=== PATIENT | female | born 1935 | race Caucasian/White ===

== ENCOUNTER 2017-06-28 16:55 | Emergency (ER) | payer MEDICARE, OTHER ==
[2017-06-28 17:52] VITALS: BP 163/77
[2017-06-28] MEDS ORDERED: Cefdinir 250mg/5 ml* 100 ml ORAL.SUSP PO ONE (19:31)
--- NOTE | 2017-06-28 19:38 | UC ---
Throat Pain/Nasal Chip HPI - History of Current Complaint Chief Complaint: UCRespiratory Stated Complaint: HEAD CONGESTION Time Seen by Provider: 06/28/17 18:51 Hx Obtained From: Patient Onset/Duration: Gradual Onset - started 5-6 days ago with nasal congestion. has gotten much worse over past 2 days, cannot sleep and feels "washed out" today Associated Signs & Symptoms: Positive: Sinus Discomfort, Nasal Discharge - yellow - Allergies/Home Medications Allergies/Adverse Reactions: Allergies Allergy/AdvReac Type Severity Reaction Status Date / Time Amoxicillin AdvReac Diarrhea Verified 02/09/16 17:52 Home Medications: Home Medications Betamethasone Dipropionate (To [Betamethasone Dipropionat] 0.05 % EX 06/28/17 [ History] Mupirocin 2% CREAM* [Bactroban 2% CREAM*] 1 applic TOPICAL TID 06/28/17 [ History Confirmed 06/28/17] Triamcinolone 0.1% CREAM (NF) [Kenalog 0.1% Cream (NF)] 1 applic .SEE ORDER [History] PMH/Surg Hx/FS Hx/Imm Hx Previously Healthy: Yes Endocrine History: Hypothyroidism Cardiovascular History: Cardiac Disease, Hypertension GI/ History: Other - adhesions Other GI/ History: adhesion - Surgical History Surgical History: Yes Surgery Procedure, Year, and Place: bowel resection - adhesions - Family History Known Family History: Positive: None - Social History Occupation: Retired Lives: With Family Alcohol Use: None Substance Use Type: None Smoking Status (MU): Never Smoked Tobacco Review of Systems Constitutional: Negative Skin: Rash - sees derm Eyes: Drainage - clear, Eye Redness ENT: Sinus Congestion, Sinus Pain/Tenderness Respiratory: Negative Cardiovascular: Negative Gastrointestinal: Negative Neurological: Negative Psychological: Negative All Other Systems Reviewed And Are Negative: Yes Physical Exam Triage Information Reviewed: Yes Appearance: Well-Appearing, No Pain Distress, Well-Nourished Vital Signs: Initial Vital Signs Temp 98.6 F 06/28/17 17:48 Pulse 85 06/28/17 17:48 Resp 18 06/28/17 17:48 BP 163/77 06/28/17 17:48 Pulse Ox 98 06/28/17 17:48 Vital Signs Reviewed: Yes Eyes: Positive: Conjunctiva Inflamed - puffiness around eyes ENT: Positive: Pharyngeal erythema, Nasal congestion, TMs normal Neck exam: Normal Respiratory Exam: Normal Respiratory: Positive: Lungs clear Cardiovascular Exam: Normal Neurological Exam: Normal Neurological: Positive: Alert Psychological Exam: Normal Skin: Positive: rashes - already treated by derm Throat Pain/Nasal Course/Dx - Differential Dx/Diagnosis Differential Diagnosis/HQI/PQRI: Influenza, Pharyngitis, Sinusitis, URI Provider Diagnoses: sinusitis Discharge - Discharge Plan Condition: Good Disposition: HOME Prescriptions: Cefdinir [Cefdinir 300 MG CAP] 300 mg PO BID #10 cap Referrals: Balwinder Wilson MD [Primary Care Provider] - 3 Days (for recheck) Additional Instructions: Take medication as directed drink plenty of fluids
== END 2017-06-28 20:07 | disposition home or self-care (01) ==
LOC: UCEAST 16:55
DX: J32.9 Chronic sinusitis, unspecified (principal); E03.9 Hypothyroidism, unspecified; I10 Essential (primary) hypertension; I51.9 Heart disease, unspecified; Z88.0 Allergy status to penicillin
CPT/HCPCS: 99213; G0463

== ENCOUNTER 2017-07-03 14:03 | Inpatient (IN) | payer MEDICARE, OTHER ==
[2017-07-03] MEDS ORDERED: Albuterol/Ipratropium NEB.SOL* Albuterol 2.5 MG/Ipratropium 0.5 MG 3 ML INH ONE (16:16)
[2017-07-03] MEDS ORDERED: methylPREDNISolone 125 MG* 2 ML VIAL IV ONE (16:16)
--- NOTE | 2017-07-03 16:44 | RAD ---
INDICATION: Shortness of breath. COMPARISON: Comparison is made with a prior study from May 02, 2012. TECHNIQUE: Dual-energy PA and lateral views of the chest were obtained. FINDINGS: The heart is within normal limits in size. Mediastinal and hilar contours appear within normal limits. The lungs are hyperinflated and clear. No pleural effusion is seen. IMPRESSION: FINDINGS SUGGESTIVE OF COPD, NO EVIDENCE FOR ACUTE FINDING.
[2017-07-03 17:23] LABS: Hematocrit 40 % (35-47); Hemoglobin 13.4 g/dl (12.0-16.0); Mean Corpuscular HGB Conc 33 g/dl (31-36); Mean Corpuscular Hemoglobin 31 pg (27-31); Mean Corpuscular Volume 93 fL (80-97); Mean Platelet Volume 10 um3 (7.4-10.4); Red Blood Count 4.29 10^6/ul (4.0-5.4); Red Cell Distribution Width 14 % (10.5-15); White Blood Count 9.1 10^3/ul (3.5-10.8)
[2017-07-03 17:39] LABS: Albumin 3.4 g/dL (3.2-5.2); BUN/Creatinine Ratio 21.3 (8-20); Calcium 8.9 mg/dL (8.6-10.3); EGFR African American 37.2 (>60); EGFR Non-African American 28.9 (>60); Globulin 3.1 g/dL (2-4); Potassium 4.3 mmol/L (3.5-5.0); Total Bilirubin 0.6 mg/dL (0.2-1.0); Total Protein 6.5 g/dL (6.4-8.9)
[2017-07-03 17:43] LABS: Troponin I 0.06 ng/mL (<0.04)
[2017-07-03] MEDS ORDERED: Aspirin Low Dose CHEW TAB* 81 MG PO ONE (18:08)
--- NOTE | 2017-07-03 18:11 | ED ---
Niurka Keene SooYoung, scribed for Yaw Baldwin MD on 07/03/17 at 1611 . Respiratory - HPI Summary HPI Summary: An 82 y/o F presents to ED with respiratory complaint ongoing for past 8-9 days ago. Pt was seen at [facility] [place] on 06/28 and is taking Cefdinir. Sx include sinus congestion, post-nasal drip, fatigue, mildly nonproductive cough, rhinorrhea, SOB. She notes having diarrhea at baseline due to her medications. Denies fever , chills. PCP is Dr. Wilson. - History of Current Complaint Chief Complaint: EDUpperRespComplaint Stated Complaint: SOB/CONGESTED/COUGH Time Seen by Provider: 07/03/17 16:05 Hx Obtained From: Patient Onset/Duration: Gradual Onset, Lasting Weeks, Still Present Initial Severity: Mild Current Severity: Mild Pain Intensity: 0 Character: Wheezing, Cough (Productive) - mildly Associated Signs and Symptoms: SOB, Wheezing, Chest Pain with Cough, Nasal Congestion, Sinus Discomfort - Allergy/Home Medications Allergies/Adverse Reactions: Allergies Allergy/AdvReac Type Severity Reaction Status Date / Time Amoxicillin AdvReac Diarrhea Verified 02/09/16 17:52 Home Medications: Home Medications Betamethasone Dipropionate (To [Betamethasone Dipropionat] 0.05 % TOPICAL BID [History Confirmed 07/03/17] Cefdinir cap (NF) [Cefdinir 300 MG cap (NF)] 300 mg PO BID 07/03/17 [History Confirmed 07/03/17] Econazole 1% CREAM (NF) [Econazole 1 % CREAM (NF)] 1 applic TOPICAL BID [History Confirmed 07/03/17] Hydrocortisone 2.5% CREAM(NF) 1 applic TOPICAL BID 07/03/17 [History Confirmed 07/03/17] [place]-3 Fatty Acids (Nf) [Fish Oil (NF)] 1,000 mg PO TID 07/03/17 [History Confirmed 07/03/17] PMH/Surg Hx/FS Hx/Imm Hx Previously Healthy: No Endocrine/Hematology History: Reports: Hx Thyroid Disease Cardiovascular History: Reports: Hx Hypertension GI History: Reports: Hx Diverticulosis - Cancer History Hx Chemotherapy: No Hx Radiation Therapy: No - Surgical History Surgery Procedure, Year, and Place: bowel resection - adhesions Infectious Disease History: Yes Infectious Disease History: Reports: Hx Shingles Denies: History Other Infectious Disease, Traveled Outside the [place] in Last 30 Days - Family History Known Family History: Positive: None, Other - neg: Breast CA - Social History Occupation: Retired Lives: With Family Alcohol Use: None Hx Substance Use: No Substance Use Type: Reports: None Hx Tobacco Use: No Smoking Status (MU): Never Smoked Tobacco Review of Systems Positive: Fatigue. Negative: Fever, Chills Positive: Nasal Discharge, Other - sinus congestion, post-nasal drip, rhinorrhea Positive: Shortness Of Breath, Cough All Other Systems Reviewed And Are Negative: Yes Physical Exam Triage Information Reviewed: Yes Vital Signs On Initial Exam: Initial Vitals Temp Pulse Resp BP Pulse Ox 97.6 F 78 20 145/73 96 07/03/17 14:17 07/03/17 14:17 07/03/17 14:17 07/03/17 14:17 07/03/17 14:17 Vital Signs Reviewed: Yes Appearance: Positive: Well-Appearing, No Pain Distress Skin: Positive: Warm, Skin Color Reflects Adequate Perfusion Head/Face: Positive: Normal Head/Face Inspection Eyes: Positive: EOMI ENT: Positive: Normal ENT inspection, Nasal congestion Respiratory/Lung Sounds: Positive: Wheezes - bilateral Cardiovascular: Positive: RRR. Negative: Murmur Abdomen Description: Positive: Nontender Musculoskeletal: Positive: Strength/ROM Intact Neurological: Positive: Sensory/Motor Intact, Alert, Oriented to Person Place, Time, CN Intact II-III Psychiatric: Positive: Normal - Donato Coma Scale Best Eye Response: 4 - Spontaneous Best Motor Response: 6 - Obeys Commands Best Verbal Response: 5 - Oriented Diagnostics - Vital Signs Vital Signs Temp Pulse Resp BP Pulse Ox 07/03/17 14:17 97.6 F 78 20 145/73 96 - Laboratory Result Diagrams: 07/03/17 17:08 07/03/17 17:08 Lab Statement: Any lab studies that have been ordered have been reviewed, and results considered in the medical decision making process. - Radiology CXR Xray Interpretation: No Acute Changes - IMPRESSION: Findings suggestive of COPD. No evidence for acute findings. ED physician has reviewed this radiology report and agrees. Radiology Interpretation Completed By: Radiologist - EKG 1739 Cardiac Rate: NL - 83bpm EKG Rhythm: Sinus Rhythm ST Segment: Normal - no STEMI Disposition - Course Course Of Treatment: An 82 y/o F presents to ED with respiratory complaint ongoing for past 8-9 days ago. Pt was seen at [facility] [place] on 06/28 and is taking Cefdinir. Sx include sinus congestion, post-nasal drip, fatigue, mildly nonproductive cough, rhinorrhea, SOB. She notes having diarrhea at baseline due to her medications. Denies fever, chills. PCP is Dr. Wilson. Bloodwork is without significant abnormality except BNP is 315, DDimer is 389, and trop is 0.06. EKG is NSR, no STEMI. CXR shows "Findings suggestive of COPD. No evidence for acute findings." - Diagnoses Provider Diagnoses: Shortness of breath, Weakness, Dehydration - Physician Notifications Discussed Care Of Patient With: Michele Reyes - hospitalist Time Discussed With Above Provider: 18:01 Instructed by Provider To: MD Will See In ED Discharge - Discharge Plan Condition: Good Disposition: ADMITTED TO [facility] Referrals: Balwinder Wilson MD [Primary Care Provider] - The documentation as recorded by the Niurka valenzuela SooYoung accurately reflects the service I personally performed and the decisions made by me, Yaw Baldwin MD.
[2017-07-03] MEDS ORDERED: NS 0.9% 1000 ML* 1,000 ML IV SCH ×2 (18:15→20:45)
[2017-07-03] MEDS ORDERED: Diphenoxylat/Atrop 2.5-0.025M* 1 TAB PO PRN (20:29)
[2017-07-03] MEDS ORDERED: Albuterol 2.5 MG/3 ML NEB.SOL* (0.083%) INH PRN (20:31)
[2017-07-03] MEDS ORDERED: Acetaminophen TAB* 325 MG PO PRN (20:31)
[2017-07-03] MEDS ORDERED: CMCS: Melatonin (NF) 3 MG TAB PO PRN (20:32)
[2017-07-03] MEDS ORDERED: Ondansetron INJ* 2 MG/ML VIAL IV PRN (20:33)
[2017-07-03] MEDS ORDERED: Spiriva Inhaler DEVICE* 1 EACH DEVICE INH ONE (21:00)
[2017-07-03] MEDS ORDERED: Enoxaparin(*) 80 MG/0.8 ML SYR SUBCUT ONE (21:00)
[2017-07-03] MEDS: Mometasone/Formoter 200/5 MDI INH SCH (21:00)
[2017-07-03] MEDS ORDERED: Mupirocin 2% CREAM* 15 GM TOPICAL SCH (21:00)
[2017-07-03] MEDS: Azithromycin IV(*) 500 MG in NS 0.9% 250 ML* 250 ML IVPB SCH (23:16)
[2017-07-03] MEDS: guaiFENesin ER TAB 600 MG PO SCH (23:19)
[2017-07-03] MEDS: ECONAZOLE 1% TOPICAL SCH (23:20)
[2017-07-03] MEDS: Mupirocin 2% OINT* TUBE TOPICAL SCH (23:21)
[2017-07-04] MEDS: Albuterol 2.5 MG/3 ML NEB.SOL* (0.083%) INH SCH ×4 (01:26→20:08)
--- NOTE | 2017-07-04 01:27 | HP ---
H&P (Free Text) History and Physical: PCP: Whit Wilson MD Date/Time: 07/03/20171999 CC: malaise HPI: Mrs Villatoro is an 82YO female presenting with complaint of ~10 days of head congestion, cough, runny eyes/nose, SOB with activity, fatigue, & decreased exercise tolerance gradually worsening. She reports palpitations last night , but denies chest pain, N/V, or F/C. She was seen at an urgent care 06/28 and was prescribed cefdinir which she reports taking, but has not helped. ED evaluation has identified stable vitals, labs notable for d-dimer of 389, stg 4 CKD (? chronic vs acute on chronic), elevated troponin of 0.06, BNP 315 ( the highest on record), CXR reading that of COPD, & ECG benign. Of note, upon my initial entering of the room her daughter (? -in-law) stated that Mrs Villatoro's R hand was cold and index finger was numb. The hands were immediately examined with both being cool to touch, the R a bit moreso than the left. Radial pulses were 2+ B and equally timed. Capillary refill was <2s B. Neither was painful. Mrs Villatroo was informed this was nothing to worry about currently. The remainder of the H&P was performed and at the end without further concern expressed by family/patient the hands were re-examined and the patient was again reassured. As I left the exam room, her daughter (? -in-law) followed me and registered a complaint that she did not feel her mother's concern for her cold R hand was properly addressed. I re-iterated my initial and follow up exam both ending with reassurance to which she then complained of my bedside manner. PMedHx IBS w/ chronic diarrhea HTN hypothyroidism HLD DM2, diet controlled psoriasis spinal stenosis [facility] Ambulatory Orders Aspirin [Aspirin Childrens 81 MG] 81 mg PO DAILY 02/09/16 Atenolol TAB* [Tenormin TAB* 50 MG] 50 mg PO DAILY 02/09/16 Atorvastatin* [Lipitor 10 MG*] 10 mg PO DAILY 02/09/16 Coenzyme Q10 (Ubidecarenone) [Co Q-10] 120 mg PO DAILY 02/09/16 Diphenoxylat/Atrop 2.5-0.025M* [Lomotil TAB*] 1 tab PO QID PRN 02/09/16 Hydrochlorothiazide TAB* [Hydrodiuril TAB*] 12.5 mg PO DAILY 02/09/16 Levothyroxine TAB* [Synthroid 88 MCG TAB*] 88 mcg PO 0800 02/09/16 Multiple Vitamins W/ Minerals [Ocuvite Eye Health Formul] 1 cap PO DAILY Mupirocin 2% CREAM* [Bactroban 2% CREAM*] 1 applic TOPICAL TID 06/28/17 Triamcinolone 0.1% CREAM (NF) [Kenalog 0.1% Cream (NF)] 1 applic TOPICAL BID Betamethasone Dipropionate (To [Betamethasone Dipropionat] 0.05 % TOPICAL BID Cefdinir cap (NF) [Cefdinir 300 MG cap (NF)] 300 mg PO BID 07/03/17 Econazole 1% CREAM (NF) [Econazole 1 % CREAM (NF)] 1 applic TOPICAL BID Hydrocortisone 2.5% CREAM(NF) 1 applic TOPICAL BID 07/03/17 [place]-3 Fatty Acids (Nf) [Fish Oil (NF)] 1,000 mg PO TID 07/03/17 Allergies Amoxicillin Adverse Reaction (Verified 02/09/16 17:52) Diarrhea PSurgHx thyroidectomy for benign tumor hysterectomy small bowel & colon resection 2nd adhesions SocHx: quit smoking in 1985, no alcohol or recreational drugs; , lives alone; worked in insurance; full code status FamHx: positive for HTN, HLD, CAD, & DM2 ROS: as above, otherwise reviewed and all were negative vitals: Vital Signs Temp 36.7 C 07/03/17 20:33 Pulse 86 07/03/17 20:33 Resp 20 07/03/17 20:33 BP 144/76 07/03/17 20:33 Pulse Ox 96 07/04/17 00:00 Intake & Output 07/03/17 07/03/17 07/04/17 11:59 23:59 11:59 Intake Total 0 Output Total 0 Balance 0 Weight 77.156 kg Intake: Oral 0 Output: Urine 0 Other: # Bowel Movements 0 Constitutional: NAD, normally developed, overweight elderly white female HEENM: atraumatic; sclera/conjunctiva: non-icteric/mildly injected; hearing: clinically intact; oropharynx: clear, mucosa moist Neck: soft tissue: non-tender; thyroid: normal Pulmonary: harsh mid- to end-expiratory rhonchi R, diffuse mild rhonichi elsewhere, fair aeration, no accessory muscle use CV: RR/RR, normal S1S2, no carotid bruit, no jugular venous distention, 1+ B DP/ PT, no edema Abdominal: soft, non-distended, non-tender, no rebound/guarding/rigidity, normoactive bowel sounds, no hepatosplenomegaly or masses, no costovertebral angle tenderness Musculoskeletal: general: grossly intact, no palpable tenderness, negative Maria Esther 's B Integumental: normal appearance and texture of exposed skin Psychiatric orientation: AA&O to PPS affect: calm mood: cooperative eye contact: good content: reliable responses: timely insight: fair to good Testing: Lab Results 07/03/17 07/03/17 07/03/17 Range/Units 17:08 17:08 17:08 WBC 9.1 (3.5-10.8) 10^3/ul RBC 4.29 (4.0-5.4) 10^6/ul Hgb 13.4 (12.0-16.0) g/dl Hct 40 (35-47) % MCV 93 (80-97) fL MCH 31 (27-31) pg MCHC 33 (31-36) g/dl RDW 14 (10.5-15) % Plt Count 178 (150-450) 10^3/ul MPV 10 (7.4-10.4) um3 Neut % (Auto) 80.5 (38-83) % Lymph % (Auto) 13.0 L (25-47) % Carbon % (Auto) 5.3 (1-9) % Eos % (Auto) 0.6 (0-6) % Baso % (Auto) 0.6 (0-2) % Absolute Neuts (auto) 7.3 (1.5-7.7) 10^3/ul Absolute Lymphs (auto) 1.2 (1.0-4.8) 10^3/ul Absolute Monos (auto) 0.5 (0-0.8) 10^3/ul Absolute Eos (auto) 0.1 (0-0.6) 10^3/ul Absolute Basos (auto) 0.1 (0-0.2) 10^3/ul Absolute Nucleated RBC 0 10^3/ul Nucleated RBC % 0 D-Dimer, Quantitative (Less Than 230) ng/mL Sodium 136 (133-145) mmol/L Potassium 4.3 (3.5-5.0) mmol/L Chloride 101 (101-111) mmol/L Carbon Dioxide 26 (22-32) mmol/L Anion Gap 9 (2-11) mmol/L BUN 36 H (6-24) mg/dL Creatinine 1.69 H (0.51-0.95) mg/dL Est GFR ( Amer) 37.2 (>60) Est GFR (Non-Af Amer) 28.9 (>60) BUN/Creatinine Ratio 21.3 H (8-20) Glucose 107 H (70-100) mg/dL Lactic Acid (0.5-2.0) mmol/L Calcium 8.9 (8.6-10.3) mg/dL Total Bilirubin 0.60 (0.2-1.0) mg/dL AST 14 (13-39) U/L ALT 8 (7-52) U/L Alkaline Phosphatase 59 (34-104) U/L Troponin I 0.06 H* (<0.04) ng/mL B-Natriuretic Peptide 315 H ( - 100) pg/mL Total Protein 6.5 (6.4-8.9) g/dL Albumin 3.4 (3.2-5.2) g/dL Globulin 3.1 (2-4) g/dL Albumin/Globulin Ratio 1.1 (1-3) Influenza A (Rapid) (Negative) Influenza B (Rapid) (Negative) 07/03/17 07/03/17 07/03/17 Range/Units 17:08 17:08 18:03 WBC (3.5-10.8) 10^3/ul RBC (4.0-5.4) 10^6/ul Hgb (12.0-16.0) g/dl Hct (35-47) % MCV (80-97) fL MCH (27-31) pg MCHC (31-36) g/dl RDW (10.5-15) % Plt Count (150-450) 10^3/ul MPV (7.4-10.4) um3 Neut % (Auto) (38-83) % Lymph % (Auto) (25-47) % Carbon % (Auto) (1-9) % Eos % (Auto) (0-6) % Baso % (Auto) (0-2) % Absolute Neuts (auto) (1.5-7.7) 10^3/ul Absolute Lymphs (auto) (1.0-4.8) 10^3/ul Absolute Monos (auto) (0-0.8) 10^3/ul Absolute Eos (auto) (0-0.6) 10^3/ul Absolute Basos (auto) (0-0.2) 10^3/ul Absolute Nucleated RBC 10^3/ul Nucleated RBC % D-Dimer, Quantitative 389 H (Less Than 230) ng/mL Sodium (133-145) mmol/L Potassium (3.5-5.0) mmol/L Chloride (101-111) mmol/L Carbon Dioxide (22-32) mmol/L Anion Gap (2-11) mmol/L BUN (6-24) mg/dL Creatinine (0.51-0.95) mg/dL Est GFR ( Amer) (>60) Est GFR (Non-Af Amer) (>60) BUN/Creatinine Ratio (8-20) Glucose (70-100) mg/dL Lactic Acid 0.9 (0.5-2.0) mmol/L Calcium (8.6-10.3) mg/dL Total Bilirubin (0.2-1.0) mg/dL AST (13-39) U/L ALT (7-52) U/L Alkaline Phosphatase (34-104) U/L Troponin I (<0.04) ng/mL B-Natriuretic Peptide ( - 100) pg/mL Total Protein (6.4-8.9) g/dL Albumin (3.2-5.2) g/dL Globulin (2-4) g/dL Albumin/Globulin Ratio (1-3) Influenza A (Rapid) Negative (Negative) Influenza B (Rapid) Negative (Negative) 07/03/17 Range/Units 22:54 WBC (3.5-10.8) 10^3/ul RBC (4.0-5.4) 10^6/ul Hgb (12.0-16.0) g/dl Hct (35-47) % MCV (80-97) fL MCH (27-31) pg MCHC (31-36) g/dl RDW (10.5-15) % Plt Count (150-450) 10^3/ul MPV (7.4-10.4) um3 Neut % (Auto) (38-83) % Lymph % (Auto) (25-47) % Carbon % (Auto) (1-9) % Eos % (Auto) (0-6) % Baso % (Auto) (0-2) % Absolute Neuts (auto) (1.5-7.7) 10^3/ul Absolute Lymphs (auto) (1.0-4.8) 10^3/ul Absolute Monos (auto) (0-0.8) 10^3/ul Absolute Eos (auto) (0-0.6) 10^3/ul Absolute Basos (auto) (0-0.2) 10^3/ul Absolute Nucleated RBC 10^3/ul Nucleated RBC % D-Dimer, Quantitative (Less Than 230) ng/mL Sodium (133-145) mmol/L Potassium (3.5-5.0) mmol/L Chloride (101-111) mmol/L Carbon Dioxide (22-32) mmol/L Anion Gap (2-11) mmol/L BUN (6-24) mg/dL Creatinine (0.51-0.95) mg/dL Est GFR ( Amer) (>60) Est GFR (Non-Af Amer) (>60) BUN/Creatinine Ratio (8-20) Glucose (70-100) mg/dL Lactic Acid (0.5-2.0) mmol/L Calcium (8.6-10.3) mg/dL Total Bilirubin (0.2-1.0) mg/dL AST (13-39) U/L ALT (7-52) U/L Alkaline Phosphatase (34-104) U/L Troponin I 0.04 H* (<0.04) ng/mL B-Natriuretic Peptide ( - 100) pg/mL Total Protein (6.4-8.9) g/dL Albumin (3.2-5.2) g/dL Globulin (2-4) g/dL Albumin/Globulin Ratio (1-3) Influenza A (Rapid) (Negative) Influenza B (Rapid) (Negative) ECG, personally reviewed: NSR rate 83, no ischemia CXR, personally reviewed: IMPRESSION: FINDINGS SUGGESTIVE OF COPD, NO EVIDENCE FOR ACUTE FINDING. Impression: 82F presenting with suspected COPD exacerbation likely in setting of viral URI DIAGNOSIS & PLAN Primary COPD exacerbation : albuterol nebs : mometasone/formoterol : tiotropium : IV azithromycin : incentive spirometry : guaifenesin : supplemental oxygen : supportive care suspect viral URI : supportive care concern for pulmonary embolism : given SOB with activity, mildly elevated troponin, elevated d-dimer, & newly elevated BNP : unable to CTA chest 2nd eGFR 28 (<30) : enoxaparin 80mg SQ x1 in ED : rehydrate & recheck renal function in AM, if eGFR >30 would CTA chest, if not would order V/Q scan : US BLE for DVT ordered Secondary IBS w/ chronic diarrhea : review meds once reconciled HTN : review meds once reconciled hypothyroidism : review meds once reconciled HLD : review meds once reconciled : heart healthy diet DM2, diet controlled : consistent carb diet : ACHS glucometry : correctional insulin : check A1c psoriasis : review meds once reconciled Admission Rational: observation for COPD exacerbation & r/o PE DVTp: enoxaparin SQ x1 on admission Code Status: full HCP: sonJosé Luis
[2017-07-04] MEDS: methylPREDNISolone SOD 40 MG* 1 ML VIAL IV SCH ×4 (02:09→23:55)
[2017-07-04 05:32] LABS: Hematocrit 35 % (35-47); Hemoglobin 11.8 g/dl (12.0-16.0); Mean Corpuscular HGB Conc 34 g/dl (31-36); Mean Corpuscular Hemoglobin 31 pg (27-31); Mean Corpuscular Volume 93 fL (80-97); Mean Platelet Volume 9 um3 (7.4-10.4); Red Blood Count 3.78 10^6/ul (4.0-5.4); Red Cell Distribution Width 14 % (10.5-15); White Blood Count 7.1 10^3/ul (3.5-10.8)
[2017-07-04] MEDS: Levothyroxine TAB* 88 MCG TAB PO SCH (05:42)
[2017-07-04 05:46] LABS: Calcium 8.2 mg/dL (8.6-10.3); EGFR African American 36.2 (>60); EGFR Non-African American 28.1 (>60); Potassium 3.8 mmol/L (3.5-5.0)
[2017-07-04] MEDS: Omeprazole CAP* 20 MG PO SCH (05:49)
[2017-07-04] MEDS: Mometasone/Formoter 200/5 MDI INH SCH ×2 (07:46→20:14)
[2017-07-04] MEDS: Tiotropium CAP.INH* CAP.INH/18 MCG (USE ORDER SET !) INH SCH (07:47)
[2017-07-04] MEDS: ECONAZOLE 1% TOPICAL SCH ×2 (08:52→21:49)
[2017-07-04] MEDS: Mupirocin 2% OINT* TUBE TOPICAL SCH ×3 (09:03→21:49)
[2017-07-04] MEDS: Insulin LISPRO* 1 UNITS UNIT SUBCUT SCH ×4 (09:03→23:41)
[2017-07-04] MEDS: Atenolol TAB* 50 MG PO SCH (09:08)
[2017-07-04] MEDS: Atorvastatin* 10 MG TAB PO SCH (09:08)
[2017-07-04] MEDS: Aspirin Low Dose CHEW TAB* 81 MG PO SCH (09:08)
[2017-07-04] MEDS: guaiFENesin ER TAB 600 MG PO SCH ×2 (09:09→21:50)
--- NOTE | 2017-07-04 12:53 | RAD ---
Indication: Shortness of breath, increased d-dimer Duplex Doppler sonography of the deep venous system of both lower extremities was performed. Bilaterally the common femoral veins, proximal greater saphenous veins, proximal deep femoral veins, femoral veins, popliteal veins, posterior tibial veins and peroneal veins appear patent and compressible. IMPRESSION: NO EVIDENCE OF DEEP VENOUS THROMBOSIS OF EITHER LOWER EXTREMITY IS PRESENT.
[2017-07-04] MEDS ORDERED: NS 0.9% 1000 ML* 1,000 ML IV SCH (16:00)
--- NOTE | 2017-07-04 16:42 | PN ---
Subjective Date of Service: 07/04/17 Interval History: Patient seen and examined at bedside. Denies fever, chills, chest discomfort, N/ V/D. Pt reports increased shortness of breath with ambulation, she feels that her shortness of breath has improved sightly since her admission. Pt reports wheezing. Pt states that she doesn't have a previous COPD diagnosis, but has been told that she has asthma and has a 30+ year smoking history. Tele: Sinus rhythm, rate 70's Family History: Unchanged from Admission Social History: Findings - 30+ year 1ppd smoking history Past Medical History: Unchanged from Admission Objective Active Medications: Acetaminophen (Tylenol Tab*) 650 mg PO Q6H PRN Reason: FEVER/PAIN Albuterol (Ventolin 2.5 Mg/3 Ml Neb.Sheri*) 2.5 mg INH Q2H PRN Reason: SOB/ WHEEZING Albuterol (Ventolin 2.5 Mg/3 Ml Neb.Sheri*) 2.5 mg INH RT.[id number] AWAKE [facility] Aspirin (Aspirin Low Dose Tab*) 81 mg PO DAILY [facility] Atenolol (Tenormin Tab*) 50 mg PO DAILY [facility] Atorvastatin Calcium (Lipitor*) 10 mg PO DAILY [facility] Diphenoxylate HCl/Atropine (Lomotil Tab*) 1 tab PO QID PRN Reason: DIARRHEA Econazole Nitrate (Econazole 1 % Cream (Nf)) 1 applic TOPICAL BID [facility] Guaifenesin (Mucinex*) 1,200 mg PO BID [facility] Azithromycin 500 mg/ Sodium (Chloride) 250 mls @ 250 mls/hr IVPB Q24H [facility] Sodium Chloride (Ns 0.9% 1000 Ml*) 1,000 mls @ 75 mls/hr IV PER RATE [facility] Insulin Human Lispro (Humalog*) 0 units SUBCUT ACHS [facility] Levothyroxine Sodium (Synthroid Tab*) 88 mcg PO DAILY@0600 [facility] Melatonin (Melatonin (Nf)) 3 mg PO BEDTIME PRN; Protocol Reason: Sleep Methylprednisolone Sodium Succinate (Solu-Medrol 40 Mg) 40 mg IV Q8H [facility] Mometasone Furoate/Formoterol Fumar (Dulera 200/5 Mdi*) 2 puff INH BID [facility] Mupirocin (Bactroban 2 % Oint*) 1 applic TOPICAL TID [facility] Omeprazole (Prilosec Cap*) 20 mg PO DAILY@0600 [facility] Ondansetron HCl (Zofran Inj*) 4 mg IV Q6H PRN Reason: NAUSEA Tiotropium [place] (Spiriva Cap.Inh*) 1 cap INH DAILY [facility] Vital Signs 07/03/17 07/03/17 07/03/17 18:30 19:00 19:01 Temperature Pulse Rate 82 74 Respiratory 14 13 20 Rate Blood Pressure 139/54 131/51 (mmHg) O2 Sat by Pulse 94 97 Oximetry 07/03/17 07/03/17 07/03/17 19:30 20:00 20:33 Temperature 98.1 F Pulse Rate 89 80 86 Respiratory 13 17 20 Rate Blood Pressure 161/128 144/76 (mmHg) O2 Sat by Pulse 97 97 98 Oximetry 07/04/17 07/04/17 07/04/17 00:00 03:33 03:35 Temperature 98.0 F 97.9 F 97.9 F Pulse Rate 82 76 76 Respiratory 16 16 16 Rate Blood Pressure 146/52 145/59 145/59 (mmHg) O2 Sat by Pulse 95 94 94 Oximetry 07/04/17 07/04/17 07/04/17 07:20 07:41 08:00 Temperature 98.2 F Pulse Rate 85 88 Respiratory 18 Rate Blood Pressure 144/78 (mmHg) O2 Sat by Pulse 95 96 95 Oximetry 07/04/17 07/04/17 07/04/17 08:22 11:52 12:21 Temperature 98.2 F 97.9 F 97.9 F Pulse Rate 85 78 78 Respiratory 18 18 18 Rate Blood Pressure 144/78 148/82 148/82 (mmHg) O2 Sat by Pulse 95 93 93 Oximetry 07/04/17 07/04/17 13:28 15:44 Temperature 98.1 F Pulse Rate 84 85 Respiratory 16 Rate Blood Pressure 152/69 (mmHg) O2 Sat by Pulse 96 93 Oximetry Oxygen Devices in Use Now: None Appearance: NAD, sitting up in bed Ears/Nose/Mouth/Throat: Mucous Membranes Moist Respiratory: Symmetrical Chest Expansion and Respiratory Effort, Clear to Auscultation - , diminished with some scattered rhonchi Cardiovascular: NL Sounds; No Murmurs; No JVD, RRR Abdominal: NL Sounds; No Tenderness; No Distention Extremities: No Edema Skin: No Rash or Ulcers Neurological: Alert and Oriented x 3, NL Muscle Strength and Tone Lines/Tubes/Other Access: Clean, Dry and Intact Peripheral IV - site benign Nutrition: Taking PO's Result Diagrams: 07/04/17 04:31 07/04/17 04:31 Assess/Plan/Problems-Billing Assessment: Ms. Villatoro is an 82 yo female with PMH significant for IBS w/ chronic diarrhea, HTN, hypothyroidism, HLD, DM, OAB and psoriasis who presented to the emergency room with complaints of URI symptoms, SOB, fatigue and decreased exercise tolerance, who was admitted for a COPD exacerbation. - Patient Problems (1) COPD exacerbation Code(s): J44.1 - CHRONIC OBSTRUCTIVE PULMONARY DISEASE W (ACUTE) EXACERBATION SNOMED Code(s): 682749798 Comment: - Shortness of breath improving - Continue albuterol nebs, Dulera, spiriva, steroids, and azithromycin - Supportive care (2) URI (upper respiratory infection) Code(s): J06.9 - ACUTE UPPER RESPIRATORY INFECTION, UNSPECIFIED SNOMED Code(s) : 73774494 Comment: - Suspect viral - Supportive care (3) SOB (shortness of breath) Code(s): R06.02 - SHORTNESS OF BREATH SNOMED Code(s): 937287842 Comment: - Bilateral LE US and VQ scan negative - Suspect secondary to URI and COPD exacerbation (4) VIJAY (acute kidney injury) Code(s): N17.9 - ACUTE KIDNEY FAILURE, UNSPECIFIED SNOMED Code(s): 57184504 Comment: - Suspect acute on chronic, previous GFR 55 - Slight improvement with IVFs - Suspect secondary to hypovalemia - Continue IVFs (5) Elevated troponin Code(s): R74.8 - ABNORMAL LEVELS OF OTHER SERUM ENZYMES SNOMED Code(s): 059245960 Comment: - Suspect demand ischemia (6) IBS (irritable bowel syndrome) (7) HTN (hypertension) Code(s): I10 - ESSENTIAL (PRIMARY) HYPERTENSION SNOMED Code(s): 06710120 Comment: - SBP 120-150's - If BP continues to be elevated consider increasing medications - Continue atenolol (8) Hypothyroidism Code(s): E03.9 - HYPOTHYROIDISM, UNSPECIFIED SNOMED Code(s): 93554291 Comment: - Continue levothyroxine (9) HLD (hyperlipidemia) Code(s): E78.5 - HYPERLIPIDEMIA, UNSPECIFIED SNOMED Code(s): 11572164 Comment: - Continue statin (10) Diabetes Code(s): E11.9 - TYPE 2 DIABETES MELLITUS WITHOUT COMPLICATIONS SNOMED Code(s) : 54504250 Comment: - Diet controlled - Glucose 140-220's - Continue Lispro SS (11) Psoriasis Code(s): L40.9 - PSORIASIS, UNSPECIFIED SNOMED Code(s): 2772227 (12) DVT prophylaxis Code(s): LID5363 - SNOMED Code(s): 132384529 Comment: - SQ heparin (13) Full code status Code(s): Z78.9 - OTHER SPECIFIED HEALTH STATUS SNOMED Code(s): 644574067 Status and Disposition: OBV to Inpatient. Discharge to home when medically stable, suspect in 1-2 days.
--- NOTE | 2017-07-04 18:16 | RAD ---
INDICATION: Shortness of breath with exertion. Comparison: Comparison is made with a prior chest x-ray study from July 04, 2017. Technique: The patient was given an intravenous injection of 14.2 mCi of xenon-133 via a rebreathing mask. The lungs were imaged in both the anterior and posterior projections. Subsequently, the patient received 6.2 mCi of technetium 99 MAA intravenously and the lungs were imaged in 8 projections. FINDINGS: The prior chest x-ray study demonstrates a small infiltrate at the right lung base and hyperinflation consistent with chronic obstructive pulmonary disease. There is a small matched defect present posteriorly at the right lung base and otherwise normal distribution of radiopharmaceutical on the perfusion images. IMPRESSION: FINDINGS CONSISTENT WITH LOW PROBABILITY FOR PULMONARY EMBOLISM.
--- NOTE | 2017-07-04 18:58 | RAD ---
INDICATION: Shortness of breath. COMPARISON: Comparison is made with a prior chest x-ray study from July 03, 2017. TECHNIQUE: Dual-energy PA and lateral views of the chest were obtained. FINDINGS: The heart is within normal limits in size. Mediastinal and hilar contours appear within normal limits. There is mild atelectasis at the right lung base. The lungs are otherwise clear. There is flattening of the diaphragms consistent with chronic obstructive pulmonary disease. No pleural effusion is seen. IMPRESSION: FINDINGS CONSISTENT WITH COPD, NO EVIDENCE FOR ACUTE FINDING.
[2017-07-04] MEDS: Azithromycin IV(*) 500 MG in NS 0.9% 250 ML* 250 ML IVPB SCH (21:51)
[2017-07-05] MEDS: Albuterol 2.5 MG/3 ML NEB.SOL* (0.083%) INH SCH ×2 (01:15→07:26)
--- NOTE | 2017-07-05 04:50 | PN ---
Progress Note - Progress Note Date of Service: 07/05/17 Note: Nursing called concerned re: ? slight R facial droop & confusion Upon arrival, Mrs Villatoro is awake denying complaint. She has a very mild R facial asymmetry with intact eye clench, equal web master/UE/LE strength. Speech is clear. Her orientation is decreased from admission, but she has been noted to sundown at night previously per nursing. Will order Q2H neurochecks and continue to monitor.
[2017-07-05] MEDS: Heparin VIAL(*) 5000 UNITS/ML VIAL (FIVE THOUSAND) SUBCUT SCH ×3 (06:03→22:54)
[2017-07-05] MEDS: Levothyroxine TAB* 88 MCG TAB PO SCH (06:03)
[2017-07-05] MEDS: Omeprazole CAP* 20 MG PO SCH (06:03)
[2017-07-05] MEDS: Mometasone/Formoter 200/5 MDI INH SCH ×2 (07:28→20:25)
[2017-07-05] MEDS: Tiotropium CAP.INH* CAP.INH/18 MCG (USE ORDER SET !) INH SCH (07:30)
[2017-07-05] MEDS: Insulin LISPRO* 1 UNITS UNIT SUBCUT SCH ×4 (08:29→22:53)
[2017-07-05] MEDS: methylPREDNISolone SOD 40 MG* 1 ML VIAL IV SCH ×2 (08:30→22:52)
[2017-07-05] MEDS: guaiFENesin ER TAB 600 MG PO SCH ×2 (08:30→22:55)
[2017-07-05] MEDS: Aspirin Low Dose CHEW TAB* 81 MG PO SCH (08:30)
[2017-07-05] MEDS: Atorvastatin* 10 MG TAB PO SCH (08:30)
[2017-07-05] MEDS: Atenolol TAB* 50 MG PO SCH (08:30)
[2017-07-05] MEDS: Mupirocin 2% OINT* TUBE TOPICAL SCH ×4 (08:31→22:59)
[2017-07-05] MEDS: ECONAZOLE 1% TOPICAL SCH ×2 (08:31→22:59)
[2017-07-05 11:02] LABS: BUN/Creatinine Ratio 34.2 (8-20); EGFR African American 39.3 (>60); EGFR Non-African American 30.6 (>60); Potassium 3.7 mmol/L (3.5-5.0)
--- NOTE | 2017-07-05 15:20 | PN ---
Subjective Date of Service: 07/05/17 Interval History: Pt is feeling a little better today than yesterday but still SOB and what she describes as very weak. She is brining up some mucous. She has not done much walking around. Family History: Unchanged from Admission Social History: Unchanged from Admission Past Medical History: Unchanged from Admission Objective Active Medications: Acetaminophen (Tylenol Tab*) 650 mg PO Q6H PRN PRN Reason: FEVER/PAIN Albuterol (Ventolin 2.5 Mg/3 Ml Neb.Sheri*) 2.5 mg INH Q2H PRN PRN Reason: SOB/WHEEZING Aspirin (Aspirin Low Dose Tab*) 81 mg PO DAILY [facility] Last Admin: 07/05/17 08:30 Dose: 81 mg Atenolol (Tenormin Tab*) 50 mg PO DAILY [facility] Last Admin: 07/05/17 08:30 Dose: 50 mg Atorvastatin Calcium (Lipitor*) 10 mg PO DAILY [facility] Last Admin: 07/05/17 08:30 Dose: 10 mg Diphenoxylate HCl/Atropine (Lomotil Tab*) 1 tab PO QID PRN PRN Reason: DIARRHEA Econazole Nitrate (Econazole 1 % Cream (Nf)) 1 applic TOPICAL BID [facility] Last Admin: 07/05/17 08:31 Dose: Not Given Guaifenesin (Mucinex*) 1,200 mg PO BID [facility] Last Admin: 07/05/17 08:30 Dose: 1,200 mg Heparin Sodium (Porcine) (Heparin Vial(*)) 5,000 units SUBCUT Q8HR [facility] Last Admin: 07/05/17 13:42 Dose: 5,000 units Azithromycin 500 mg/ Sodium (Chloride) 250 mls @ 250 mls/hr IVPB Q24H [facility] Last Admin: 07/04/17 21:51 Dose: 250 mls/hr Insulin Human Lispro (Humalog*) 0 units SUBCUT ACHS [facility] PRN Reason: Protocol Last Admin: 07/05/17 11:53 Dose: 4 unit Levothyroxine Sodium (Synthroid Tab*) 88 mcg PO DAILY@0600 [facility] Last Admin: 07/05/17 06:03 Dose: 88 mcg Melatonin (Melatonin (Nf)) 3 mg PO BEDTIME PRN; Protocol PRN Reason: Sleep Last Admin: 07/04/17 21:49 Dose: 3 mg Methylprednisolone Sodium Succinate (Solu-Medrol 40 Mg) 40 mg IV Q12H [facility] Mometasone Furoate/Formoterol Fumar (Dulera 200/5 Mdi*) 2 puff INH BID [facility] Last Admin: 07/05/17 07:28 Dose: 2 puff Mupirocin (Bactroban 2 % Oint*) 1 applic TOPICAL TID [facility] Last Admin: 07/05/17 13:46 Dose: Not Given Omeprazole (Prilosec Cap*) 20 mg PO DAILY@0600 [facility] Last Admin: 07/05/17 06:03 Dose: Not Given Ondansetron HCl (Zofran Inj*) 4 mg IV Q6H PRN PRN Reason: NAUSEA Tiotropium [place] (Spiriva Cap.Inh*) 1 cap INH DAILY [facility] Last Admin: 07/05/17 07:30 Dose: 1 cap Vital Signs 07/04/17 07/04/17 07/04/17 19:44 20:00 20:05 Temperature 97.5 F Pulse Rate 80 82 Respiratory 16 16 Rate Blood Pressure 129/48 (mmHg) O2 Sat by Pulse 96 97 95 Oximetry 07/04/17 07/04/17 07/05/17 20:30 23:22 00:09 Temperature 98.3 F Pulse Rate 83 Respiratory 16 16 Rate Blood Pressure 120/41 (mmHg) O2 Sat by Pulse 97 96 Oximetry 07/05/17 07/05/17 07/05/17 04:17 07:28 07:30 Temperature 97.7 F Pulse Rate 85 Respiratory 18 18 Rate Blood Pressure 158/67 (mmHg) O2 Sat by Pulse 96 96 Oximetry 07/05/17 07/05/17 07:34 11:16 Temperature 97.9 F 98.3 F Pulse Rate 73 80 Respiratory 18 18 Rate Blood Pressure 119/35 121/51 (mmHg) O2 Sat by Pulse 95 97 Oximetry Oxygen Devices in Use Now: None Appearance: Elderly female lying in bed sleeping, awakens to voice, NAD Eyes: No Scleral Icterus Ears/Nose/Mouth/Throat: Mucous Membranes Moist Respiratory: Symmetrical Chest Expansion and Respiratory Effort, - - coarse breath sounds at the bases, + forced expiratory wheeze Cardiovascular: NL Sounds; No Murmurs; No JVD, RRR, No Edema Abdominal: NL Sounds; No Tenderness; No Distention Extremities: No Clubbing, Cyanosis Skin: No Rash or Ulcers, No Nodules or Sclerosis Neurological: Alert and Oriented x 3 Result Diagrams: 07/04/17 04:31 07/05/17 10:02 Assess/Plan/Problems-Billing Ms. Villatoro is an 82 yo female with PMHx significant for IBS w/ chronic diarrhea, HTN, hypothyroidism, HLD, DM, OAB and psoriasis who presented to the emergency room with complaints of URI symptoms, SOB, fatigue and decreased exercise tolerance, who was admitted for a COPD exacerbation. - Patient Problems (1) COPD exacerbation Current Visit: Yes Status: Acute Code(s): J44.1 - CHRONIC OBSTRUCTIVE PULMONARY DISEASE W (ACUTE) EXACERBATION SNOMED Code(s): 175161799 Comment: The patient has never been formally diagnosed with COPD. I explained to her that this is a presumed diagnosis based on her h/o smoking. For now will continue nebs, dulera and spiriva. Continue azithromycin. Will taper solumedrol to 40mg IV q12hr. Once she has recoved from this illness she should get formal PFTs. (2) Diabetes Current Visit: Yes Status: Chronic Code(s): E11.9 - TYPE 2 DIABETES MELLITUS WITHOUT COMPLICATIONS SNOMED Code(s): 79742036 Comment: Sugars have been uncontrolled likely related to the solumedrol. Will check A1c. For now continue lispro sliding scale. (3) Elevated troponin Current Visit: Yes Status: Acute Code(s): R74.8 - ABNORMAL LEVELS OF OTHER SERUM ENZYMES SNOMED Code(s): 403590293 Comment: Likely secondary to demand ischemia from her work of breathing on admission (4) HTN (hypertension) Current Visit: Yes Status: Chronic Code(s): I10 - ESSENTIAL (PRIMARY) HYPERTENSION SNOMED Code(s): 94851609 Comment: BP is under fair control. Would rather slightly high than low. Continue atenolol at home dose. (5) Hypothyroidism Current Visit: Yes Status: Chronic Code(s): E03.9 - HYPOTHYROIDISM, UNSPECIFIED SNOMED Code(s): 58498515 Comment: Continue levothyroxine at home dose. (6) HLD (hyperlipidemia) Current Visit: Yes Status: Chronic Code(s): E78.5 - HYPERLIPIDEMIA, UNSPECIFIED SNOMED Code(s): 58035559 Comment: Continue statin (7) DVT prophylaxis Current Visit: Yes Status: Acute Code(s): MNQ4299 - SNOMED Code(s): 395142583 Comment: SQ heparin (8) Full code status Current Visit: Yes Status: Acute Code(s): Z78.9 - OTHER SPECIFIED HEALTH STATUS SNOMED Code(s): 496193491 Status and Disposition: OBV to Inpatient. Discharge to home when medically stable, suspect in 1-2 days.
[2017-07-05] MEDS: Azithromycin IV(*) 500 MG in NS 0.9% 250 ML* 250 ML IVPB SCH (22:57)
[2017-07-06] MEDS: Levothyroxine TAB* 88 MCG TAB PO SCH (05:24)
[2017-07-06] MEDS: Heparin VIAL(*) 5000 UNITS/ML VIAL (FIVE THOUSAND) SUBCUT SCH ×3 (05:24→21:18)
[2017-07-06] MEDS: Omeprazole CAP* 20 MG PO SCH (05:24)
[2017-07-06] MEDS: Tiotropium CAP.INH* CAP.INH/18 MCG (USE ORDER SET !) INH SCH (07:47)
[2017-07-06] MEDS: Mometasone/Formoter 200/5 MDI INH SCH ×2 (07:47→20:05)
[2017-07-06] MEDS: Insulin LISPRO* 1 UNITS UNIT SUBCUT SCH ×4 (08:21→21:16)
[2017-07-06] MEDS: Atorvastatin* 10 MG TAB PO SCH (08:22)
[2017-07-06] MEDS: Atenolol TAB* 50 MG PO SCH (08:22)
[2017-07-06] MEDS: Aspirin Low Dose CHEW TAB* 81 MG PO SCH (08:22)
[2017-07-06] MEDS: methylPREDNISolone SOD 40 MG* 1 ML VIAL IV SCH (08:22)
[2017-07-06] MEDS: guaiFENesin ER TAB 600 MG PO SCH ×2 (08:23→21:20)
[2017-07-06] MEDS: Mupirocin 2% OINT* TUBE TOPICAL SCH ×3 (08:23→21:22)
[2017-07-06] MEDS: ECONAZOLE 1% TOPICAL SCH ×2 (08:23→21:22)
[2017-07-06] MEDS: predniSONE TAB* 20 MG PO SCH (14:48)
--- NOTE | 2017-07-06 16:11 | PN ---
Subjective Date of Service: 07/06/17 Interval History: Patient has no acute complaints. Patient able to walk in the hallway with only moderate SOB. Patient continues to improve. Patient continues to cough and feels like she cannot clear the mucus in her lungs. Family History: Unchanged from Admission Social History: Unchanged from Admission Past Medical History: Unchanged from Admission Objective Active Medications: Acetaminophen (Tylenol Tab*) 650 mg PO Q6H PRN PRN Reason: FEVER/PAIN Albuterol (Ventolin 2.5 Mg/3 Ml Neb.Sheri*) 2.5 mg INH Q2H PRN PRN Reason: SOB/WHEEZING Aspirin (Aspirin Low Dose Tab*) 81 mg PO DAILY REPLACED BY [facility] Last Admin: 07/06/17 08:22 Dose: 81 mg Atenolol (Tenormin Tab*) 50 mg PO DAILY REPLACED BY [facility] Last Admin: 07/06/17 08:22 Dose: 50 mg Atorvastatin Calcium (Lipitor*) 10 mg PO DAILY REPLACED BY [facility] Last Admin: 07/06/17 08:22 Dose: 10 mg Diphenoxylate HCl/Atropine (Lomotil Tab*) 1 tab PO QID PRN PRN Reason: DIARRHEA Econazole Nitrate (Econazole 1 % Cream (Nf)) 1 applic TOPICAL BID REPLACED BY [facility] Last Admin: 07/06/17 08:23 Dose: Not Given Guaifenesin (Mucinex*) 1,200 mg PO BID REPLACED BY [facility] Last Admin: 07/06/17 08:23 Dose: 1,200 mg Heparin Sodium (Porcine) (Heparin Vial(*)) 5,000 units SUBCUT Q8HR REPLACED BY [facility] Last Admin: 07/06/17 14:49 Dose: 5,000 units Azithromycin 500 mg/ Sodium (Chloride) 250 mls @ 250 mls/hr IVPB Q24H REPLACED BY [facility] Last Admin: 07/05/17 22:57 Dose: 250 mls/hr Insulin Human Lispro (Humalog*) 0 units SUBCUT ACHS REPLACED BY [facility] PRN Reason: Protocol Last Admin: 07/06/17 12:05 Dose: 2 unit Levothyroxine Sodium (Synthroid Tab*) 88 mcg PO DAILY@0600 REPLACED BY [facility] Last Admin: 07/06/17 05:24 Dose: 88 mcg Melatonin (Melatonin (Nf)) 3 mg PO BEDTIME PRN; Protocol PRN Reason: Sleep Last Admin: 07/04/17 21:49 Dose: 3 mg Mometasone Furoate/Formoterol Fumar (Dulera 200/5 Mdi*) 2 puff INH BID REPLACED BY [facility] Last Admin: 07/06/17 07:47 Dose: 2 puff Mupirocin (Bactroban 2 % Oint*) 1 applic TOPICAL TID REPLACED BY [facility] Last Admin: 07/06/17 12:06 Dose: Not Given Omeprazole (Prilosec Cap*) 20 mg PO DAILY@0600 REPLACED BY [facility] Last Admin: 07/06/17 05:24 Dose: Not Given Ondansetron HCl (Zofran Inj*) 4 mg IV Q6H PRN PRN Reason: NAUSEA Prednisone (Deltasone Tab*) 60 mg PO DAILY REPLACED BY [facility] Last Admin: 07/06/17 14:48 Dose: 60 mg Tiotropium Chazy (Spiriva Cap.Inh*) 1 cap INH DAILY REPLACED BY [facility] Last Admin: 07/06/17 07:47 Dose: 1 cap Vital Signs 07/05/17 07/05/17 07/05/17 19:00 20:00 20:02 Temperature 97.8 F Pulse Rate 89 80 Respiratory 16 18 16 Rate Blood Pressure 147/61 (mmHg) O2 Sat by Pulse 95 95 Oximetry 07/05/17 07/06/17 07/06/17 23:53 00:00 01:07 Temperature 98.3 F Pulse Rate 85 87 Respiratory 16 16 Rate Blood Pressure 146/80 (mmHg) O2 Sat by Pulse 96 96 98 Oximetry 07/06/17 07/06/17 07/06/17 03:34 07:30 07:32 Temperature 98.4 F 97.7 F Pulse Rate 78 72 Respiratory 16 20 18 Rate Blood Pressure 161/65 157/64 (mmHg) O2 Sat by Pulse 94 97 95 Oximetry 07/06/17 07/06/17 07/06/17 07:51 11:15 15:35 Temperature 98.4 F 97.8 F Pulse Rate 68 77 70 Respiratory 14 18 18 Rate Blood Pressure 146/69 166/68 (mmHg) O2 Sat by Pulse 97 95 97 Oximetry Oxygen Devices in Use Now: None Appearance: Patient is an 82yo female who appears stated age and is sitting comfortably in the bed in [facility]. Eyes: No Scleral Icterus, PERRLA Ears/Nose/Mouth/Throat: NL Teeth, Lips, Gums, Clear Oropharnyx, Mucous Membranes Moist Neck: NL Appearance and Movements; NL JVP, Trachea Midline Respiratory: Symmetrical Chest Expansion and Respiratory Effort, - - Rhonchi and expiratory wheezes on exam in the bilateral lower and middle lobes. No accessory muscle use. Cardiovascular: NL Sounds; No Murmurs; No JVD, RRR, No Edema Abdominal: NL Sounds; No Tenderness; No Distention, No Hepatosplenomegaly Lymphatic: No Cervical Adenopathy Extremities: No Edema, No Clubbing, Cyanosis Skin: No Rash or Ulcers Neurological: Alert and Oriented x 3, - - Residual R sided facial droop noted. CN II-XII otherwise intact. Result Diagrams: 07/04/17 04:31 07/05/17 10:02 Additional Lab and Data: 07/03/17 07/03/17 07/03/17 02:35 17:08 17:08 WBC 9.1 RBC 4.29 Hgb 13.4 Hct 40 MCV 93 MCH 31 MCHC 33 RDW 14 Plt Count 178 MPV 10 Neut % (Auto) 80.5 Lymph % (Auto) 13.0 L Ware % (Auto) 5.3 Eos % (Auto) 0.6 Baso % (Auto) 0.6 Absolute Neuts (auto) 7.3 Absolute Lymphs (auto) 1.2 Absolute Monos (auto) 0.5 Absolute Eos (auto) 0.1 Absolute Basos (auto) 0.1 Absolute Nucleated RBC 0 Nucleated RBC % 0 D-Dimer, Quantitative Sodium Potassium Chloride Carbon Dioxide Anion Gap BUN Creatinine Est GFR ( Amer) Est GFR (Non-Af Amer) BUN/Creatinine Ratio Glucose POC Glucose (mg/dL) Hemoglobin A1c 5.7 Lactic Acid Calcium Total Bilirubin AST ALT Alkaline Phosphatase Troponin I B-Natriuretic Peptide 315 H Total Protein Albumin Globulin Albumin/Globulin Ratio Influenza A (Rapid) Influenza B (Rapid) 07/03/17 07/03/17 07/03/17 17:08 17:08 17:08 WBC RBC Hgb Hct MCV MCH MCHC RDW Plt Count MPV Neut % (Auto) Lymph % (Auto) Ware % (Auto) Eos % (Auto) Baso % (Auto) Absolute Neuts (auto) Absolute Lymphs (auto) Absolute Monos (auto) Absolute Eos (auto) Absolute Basos (auto) Absolute Nucleated RBC Nucleated RBC % D-Dimer, Quantitative 389 H Sodium 136 Potassium 4.3 Chloride 101 Carbon Dioxide 26 Anion Gap 9 BUN 36 H Creatinine 1.69 H Est GFR ( Amer) 37.2 Est GFR (Non-Af Amer) 28.9 BUN/Creatinine Ratio 21.3 H Glucose 107 H POC Glucose (mg/dL) Hemoglobin A1c Lactic Acid 0.9 Calcium 8.9 Total Bilirubin 0.60 AST 14 ALT 8 Alkaline Phosphatase 59 Troponin I 0.06 H* B-Natriuretic Peptide Total Protein 6.5 Albumin 3.4 Globulin 3.1 Albumin/Globulin Ratio 1.1 Influenza A (Rapid) Influenza B (Rapid) 07/03/17 07/03/17 07/04/17 18:03 22:54 04:31 WBC 7.1 RBC 3.78 L Hgb 11.8 L Hct 35 MCV 93 MCH 31 MCHC 34 RDW 14 Plt Count 155 MPV 9 Neut % (Auto) Lymph % (Auto) Ware % (Auto) Eos % (Auto) Baso % (Auto) Absolute Neuts (auto) Absolute Lymphs (auto) Absolute Monos (auto) Absolute Eos (auto) Absolute Basos (auto) Absolute Nucleated RBC Nucleated RBC % D-Dimer, Quantitative Sodium Potassium Chloride Carbon Dioxide Anion Gap BUN Creatinine Est GFR ( Amer) Est GFR (Non-Af Amer) BUN/Creatinine Ratio Glucose POC Glucose (mg/dL) Hemoglobin A1c Lactic Acid Calcium Total Bilirubin AST ALT Alkaline Phosphatase Troponin I 0.04 H* B-Natriuretic Peptide Total Protein Albumin Globulin Albumin/Globulin Ratio Influenza A (Rapid) Negative Influenza B (Rapid) Negative 07/04/17 07/04/17 07/04/17 04:31 07:48 11:28 WBC RBC Hgb Hct MCV MCH MCHC RDW Plt Count MPV Neut % (Auto) Lymph % (Auto) Ware % (Auto) Eos % (Auto) Baso % (Auto) Absolute Neuts (auto) Absolute Lymphs (auto) Absolute Monos (auto) Absolute Eos (auto) Absolute Basos (auto) Absolute Nucleated RBC Nucleated RBC % D-Dimer, Quantitative Sodium 137 Potassium 3.8 Chloride 103 Carbon Dioxide 23 Anion Gap 11 BUN 45 H Creatinine 1.73 H Est GFR ( Amer) 36.2 Est GFR (Non-Af Amer) 28.1 BUN/Creatinine Ratio 26.0 H Glucose 141 H POC Glucose (mg/dL) 144 H 220 H Hemoglobin A1c Lactic Acid Calcium 8.2 L Total Bilirubin AST ALT Alkaline Phosphatase Troponin I B-Natriuretic Peptide Total Protein Albumin Globulin Albumin/Globulin Ratio Influenza A (Rapid) Influenza B (Rapid) 07/04/17 07/04/17 07/05/17 16:43 22:31 07:28 WBC RBC Hgb Hct MCV MCH MCHC RDW Plt Count MPV Neut % (Auto) Lymph % (Auto) Ware % (Auto) Eos % (Auto) Baso % (Auto) Absolute Neuts (auto) Absolute Lymphs (auto) Absolute Monos (auto) Absolute Eos (auto) Absolute Basos (auto) Absolute Nucleated RBC Nucleated RBC % D-Dimer, Quantitative Sodium Potassium Chloride Carbon Dioxide Anion Gap BUN Creatinine Est GFR ( Amer) Est GFR (Non-Af Amer) BUN/Creatinine Ratio Glucose POC Glucose (mg/dL) 173 H 268 H 153 H Hemoglobin A1c Lactic Acid Calcium Total Bilirubin AST ALT Alkaline Phosphatase Troponin I B-Natriuretic Peptide Total Protein Albumin Globulin Albumin/Globulin Ratio Influenza A (Rapid) Influenza B (Rapid) 07/05/17 07/05/17 07/05/17 10:02 11:29 16:07 WBC RBC Hgb Hct MCV MCH MCHC RDW Plt Count MPV Neut % (Auto) Lymph % (Auto) Ware % (Auto) Eos % (Auto) Baso % (Auto) Absolute Neuts (auto) Absolute Lymphs (auto) Absolute Monos (auto) Absolute Eos (auto) Absolute Basos (auto) Absolute Nucleated RBC Nucleated RBC % D-Dimer, Quantitative Sodium 136 Potassium 3.7 Chloride 101 Carbon Dioxide 22 Anion Gap 13 H BUN 55 H Creatinine 1.61 H Est GFR ( Amer) 39.3 Est GFR (Non-Af Amer) 30.6 BUN/Creatinine Ratio 34.2 H Glucose 207 H POC Glucose (mg/dL) 218 H 155 H Hemoglobin A1c Lactic Acid Calcium 8.0 L Total Bilirubin AST ALT Alkaline Phosphatase Troponin I B-Natriuretic Peptide Total Protein Albumin Globulin Albumin/Globulin Ratio Influenza A (Rapid) Influenza B (Rapid) 07/05/17 07/06/17 07/06/17 21:15 07:38 11:39 WBC RBC Hgb Hct MCV MCH MCHC RDW Plt Count MPV Neut % (Auto) Lymph % (Auto) Ware % (Auto) Eos % (Auto) Baso % (Auto) Absolute Neuts (auto) Absolute Lymphs (auto) Absolute Monos (auto) Absolute Eos (auto) Absolute Basos (auto) Absolute Nucleated RBC Nucleated RBC % D-Dimer, Quantitative Sodium Potassium Chloride Carbon Dioxide Anion Gap BUN Creatinine Est GFR ( Amer) Est GFR (Non-Af Amer) BUN/Creatinine Ratio Glucose POC Glucose (mg/dL) 158 H 145 H 194 H Hemoglobin A1c Lactic Acid Calcium Total Bilirubin AST ALT Alkaline Phosphatase Troponin I B-Natriuretic Peptide Total Protein Albumin Globulin Albumin/Globulin Ratio Influenza A (Rapid) Influenza B (Rapid) Assess/Plan/Problems-Billing Ms. Villatoro is an 82 yo female with PMHx significant for IBS w/ chronic diarrhea, HTN, hypothyroidism, HLD, and DM who presented to the emergency room with complaints of URI symptoms, SOB, fatigue and decreased exercise tolerance, who was admitted for a COPD exacerbation and is improving on inhalers, PO steroids and Antibiotics. - Patient Problems (1) COPD exacerbation Current Visit: Yes Status: Acute Code(s): J44.1 - CHRONIC OBSTRUCTIVE PULMONARY DISEASE W (ACUTE) EXACERBATION SNOMED Code(s): 735969059 Comment: The patient has never been formally diagnosed with COPD. Will continue nebs, dulera and spiriva. Continue azithromycin. Changed to PO prednisone 60mg PO daily. Recommend formal PFTs outpatient when able. (2) VIJAY (acute kidney injury) Current Visit: Yes Status: Acute Code(s): N17.9 - ACUTE KIDNEY FAILURE, UNSPECIFIED SNOMED Code(s): 45141651 Comment: Slightly improved, probably new baseline, will recheck in AM since IVF has been D/C'd. (3) Elevated troponin Current Visit: Yes Status: Acute Code(s): R74.8 - ABNORMAL LEVELS OF OTHER SERUM ENZYMES SNOMED Code(s): 286367233 Comment: Likely secondary to demand ischemia from her work of breathing on admission (4) SOB (shortness of breath) Current Visit: Yes Status: Acute Code(s): R06.02 - SHORTNESS OF BREATH SNOMED Code(s): 753675501 Comment: - Bilateral LE US and VQ scan negative - Suspect secondary to URI and COPD exacerbation (5) URI (upper respiratory infection) Current Visit: Yes Status: Acute Code(s): J06.9 - ACUTE UPPER RESPIRATORY INFECTION, UNSPECIFIED SNOMED Code(s): 81012467 Comment: - Suspect viral - Supportive care (6) Diabetes Current Visit: Yes Status: Chronic Code(s): E11.9 - TYPE 2 DIABETES MELLITUS WITHOUT COMPLICATIONS SNOMED Code(s): 28679490 Comment: Sugars have been uncontrolled likely related to the solumedrol. Will check A1c. For now continue lispro sliding scale. (7) HLD (hyperlipidemia) Current Visit: Yes Status: Chronic Code(s): E78.5 - HYPERLIPIDEMIA, UNSPECIFIED SNOMED Code(s): 95523037 Comment: Continue statin (8) HTN (hypertension) Current Visit: Yes Status: Chronic Code(s): I10 - ESSENTIAL (PRIMARY) HYPERTENSION SNOMED Code(s): 33596741 Comment: BP slightly elevated. Possibly due to prednisone. Would rather slightly high than low. Continue atenolol at home dose. Will consider starting ACEI after confirming GFR at baseline. (9) Hypothyroidism Current Visit: Yes Status: Chronic Code(s): E03.9 - HYPOTHYROIDISM, UNSPECIFIED SNOMED Code(s): 07258117 Comment: Continue levothyroxine at home dose. (10) IBS (irritable bowel syndrome) Current Visit: No Status: Chronic Comment: Patient denies current abdominal pain, diarrhea, or constipation. (11) Psoriasis Current Visit: No Status: Chronic Code(s): L40.9 - PSORIASIS, UNSPECIFIED SNOMED Code(s): 9289551 Comment: Patient has rash that could be psoriasis. Patient states that outpatient equipment or machinery cleaner said it could be a drug eruption. Outpatient dermatology consult already scheduled. (12) DVT prophylaxis Current Visit: Yes Status: Acute Code(s): EOB3565 - SNOMED Code(s): 186437375 Comment: SQ heparin Status and Disposition: Admitted inpatient, will discharge tomorrow if patient remains stable.
[2017-07-06] MEDS: Azithromycin TAB* 250 MG PO SCH (17:29)
[2017-07-06] MEDS ORDERED: amLODIPine TAB* 5 MG PO ONE ×2 (20:07→23:00)
--- NOTE | 2017-07-06 20:08 | PN ---
Progress Note - Progress Note Date of Service: 07/06/17 Note: Called for SBP >180 Remained >180 on manual recheck Plan is to start ACEi if GRF baseline Will give norvasc 5mg one time this PM and BP can be followed in AM.
[2017-07-07] MEDS: Levothyroxine TAB* 88 MCG TAB PO SCH (05:29)
[2017-07-07] MEDS: Omeprazole CAP* 20 MG PO SCH (05:30)
[2017-07-07] MEDS: Heparin VIAL(*) 5000 UNITS/ML VIAL (FIVE THOUSAND) SUBCUT SCH ×2 (05:32→13:31)
[2017-07-07 07:09] LABS: Hematocrit 36 % (35-47); Hemoglobin 12.3 g/dl (12.0-16.0); Mean Corpuscular HGB Conc 34 g/dl (31-36); Mean Corpuscular Hemoglobin 31 pg (27-31); Mean Corpuscular Volume 93 fL (80-97); Mean Platelet Volume 9 um3 (7.4-10.4); Red Blood Count 3.93 10^6/ul (4.0-5.4); Red Cell Distribution Width 14 % (10.5-15); White Blood Count 12.5 10^3/ul (3.5-10.8)
[2017-07-07 07:11] LABS: Comments Flag Yes
[2017-07-07 07:38] LABS: BUN/Creatinine Ratio 38.9 (8-20); Calcium 8.2 mg/dL (8.6-10.3); EGFR African American 62.3 (>60); EGFR Non-African American 48.5 (>60); Potassium 3.9 mmol/L (3.5-5.0)
[2017-07-07] MEDS: Insulin LISPRO* 1 UNITS UNIT SUBCUT SCH ×3 (08:24→13:24)
[2017-07-07] MEDS: Tiotropium CAP.INH* CAP.INH/18 MCG (USE ORDER SET !) INH SCH (08:39)
[2017-07-07] MEDS: Mometasone/Formoter 200/5 MDI INH SCH (08:40)
[2017-07-07] MEDS: Azithromycin TAB* 250 MG PO SCH (08:47)
[2017-07-07] MEDS: Aspirin Low Dose CHEW TAB* 81 MG PO SCH (08:47)
[2017-07-07] MEDS: guaiFENesin ER TAB 600 MG PO SCH (08:48)
[2017-07-07] MEDS: predniSONE TAB* 20 MG PO SCH (08:48)
[2017-07-07] MEDS: Atorvastatin* 10 MG TAB PO SCH (08:50)
[2017-07-07] MEDS: ECONAZOLE 1% TOPICAL SCH (08:58)
[2017-07-07] MEDS: Mupirocin 2% OINT* TUBE TOPICAL SCH (08:58)
[2017-07-07] MEDS ORDERED: Lisinopril TAB* 5 MG PO SCH (09:00)
[2017-07-07] MEDS ORDERED: Hydrochlorothiazide TAB* 25 MG PO SCH (09:00)
[2017-07-07] MEDS ORDERED: Atenolol TAB* 50 MG PO SCH (09:00)
[2017-07-07 13:16] VITALS: BP 152/66
--- NOTE | 2017-07-08 03:27 | DS ---
DISCHARGE SUMMARY: DATE OF ADMISSION: 07/04/17 DATE OF DISCHARGE: 07/07/17 PRIMARY CARE DOCTOR: Dr. Balwinder Wilson. MY ATTENDING WHILE IN THE HOSPITAL: Dr. Luke Russell * (DICTATED BY NBA HAMMOND) PRINCIPAL DIAGNOSES: 1. Chronic obstructive pulmonary disease exacerbation. 2. Upper respiratory infection. SECONDARY DIAGNOSES: 1. Hypertension. 2. Hypothyroidism. 3. Hyperlipidemia. 4. Diabetes mellitus. 5. Psoriasis. 6. Irritable bowel syndrome with chronic diarrhea. DISCHARGE MEDICATIONS: 1. Ocuvite one cap p.o. daily. 2. Lomotil 2.5/0.025 mg one tab p.o. q.i.d. as needed for diarrhea. 3. Coenzyme Q10 120 mg p.o. daily. 4. Aspirin 81 mg p.o. daily. 5. Hydrochlorothiazide 12.5 mg p.o. daily. 6. Lipitor 10 mg p.o. daily. 7. Synthroid 88 mcg p.o. every morning. 8. Bactroban one application topical t.i.d. 9. Triamcinolone one application topical b.i.d. 10. Hydrocortisone cream one application topical b.i.d. 11. Miconazole one application topical b.i.d. 12. Fish oil 1000 mg p.o. t.i.d. 13. Atenolol 50 mg p.o. b.i.d. New medications at home: 1. Advair 45/21 one inhalation daily. 2. Spiriva 18 mcg cap one inhalation daily. 3. Guaifenesin 1200 mg p.o. b.i.d. 4. Prednisone 60 mg daily for 3 days, 40 mg p.o. daily for 3 days, 20 mg p.o. daily for 3 days, 10 mg daily for 6 days. 5. ProAir RespiClick one puff MDI q.6 hours as needed for wheezing. Discontinued Medication: Cefdinir 300 mg p.o. b.i.d. STUDIES DONE WHILE IN THE HOSPITAL: Chest x-ray in the emergency department was read as findings suggestive of COPD, no evidence of acute findings. Electrocardiogram from 07/03/17 shows normal sinus rhythm, signs of left ventricular hypertrophy, normal axis. No ST segment changes. No other abnormalities. EKG from 07/04/17 consistent with previous study. Venous Doppler study from 07/04/17 read as no evidence of deep vein thrombosis in either lower extremity. Lung V/Q scan from 07/04/17 shows findings consistent with low probability for pulmonary embolism. Chest x-ray from 07/04/17 read as findings consistent with COPD, no evidence of acute finding. HOSPITAL COURSE: This is a brief summary of the hospitalization. For more details, please see the history and physical from John Swartz on 07/03/17. Briefly, the patient is an 82-year-old female who presented with 10 days of head congestion, cough, runny nose, and increasing shortness of breath with activity, fatigue, and decreased exercise tolerance. The patient was evaluated in the emergency department and was found to have an elevated D-dimer and elevated troponin and elevated BNP. Patient was admitted for COPD exacerbation with upper respiratory infection, NSTEMI, and possible pulmonary embolism. The patient had studies which ruled out pulmonary embolism and DVT. Patient was prescribed medications for COPD exacerbation including inhalers, oral steroids, and azithromycin IV. Patient improved over the first night from 07/03/17 to . He continued to have wheezing and severe shortness of breath with activity. Patient's acute kidney injury also improved with IV fluids overnight from creatinine going from 1.69 to 1.73 to 1.61 to 1.08. Throughout the course of her hospitalization, patient had continued wheezing, which responded well to inhalation treatments. 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 On 07/05/17, patient's shortness of breath continued to improve but she had continued weakness and shortness of breath with exertion. On 07/06/17, patient continued to improve again and was transitioned to p.o. prednisone, which she tolerated well. The patient was found to be hypertensive at this time and 10 mg of amlodipine was ordered to good effect. On the morning of 07/07/17, when she was being discharged, the patient stated that she initially took hydrochlorothiazide at home and took her Tenormin twice daily, none of which had been happening in the hospital, she was only receiving one dose of Tenormin daily and no hydrochlorothiazide, so patient's home medications were resumed and the patient was prepared for discharge with plan for followup PFTs outpatient and to be sent home on a prednisone taper. Patient had received 5 days of azithromycin at this point and was improving significantly. Patient still had rhonchi and wheezes, but that were improved from 07/06/17 to 07/07/17. Outpatient plans stated that she plans on moving with her daughter in [facility] for support and would like home physical therapy help. The patient was diagnosed with prediabetes but is diet controlled. The patient was persistently hyperglycemic while admitted to the hospital. PHYSICAL EXAMINATION ON THE DAY OF DISCHARGE: General: The patient is an 82- year- old female who appears her stated age, sitting comfortably in the exam bed in no acute distress. Vital signs at 11:11 on 07/07/17, temperature 98.3, pulse rate 65, respiratory rate 16, oxygen saturation 97%, blood pressure 152/ 66. HEENT: Head normocephalic, atraumatic. Sclerae anicteric. No conjunctival injection. Nose: There is moderate amount of dried mucous at both the nares, but no active drainage, pale. Mucosa pink and moist. Pharynx nonerythematous. Oral mucosa moist. Neck: Supple, nontender. No lymphadenopathy. No carotid bruits auscultated. Cardiac: Irregular rhythm correlated with PACs on telemetry. No clicks, murmurs, gallops, or rubs. Pulses 2+ bilateral radial, dorsalis pedis, and posterior tibialis areas. No edema noted in the lower extremity. Respiratory: Crackles and rhonchi in the bilateral lower and middle lobes, which improved slightly with prolonged deep breathing. Good air exchange bilaterally. Abdomen: Soft, nontender, nondistended. Bowel sounds present and normoactive in all 4 quadrants. No hepatosplenomegaly. No abdominal bruits auscultated. Neuro: Cranial nerves II through XII grossly intact. Alert and oriented x3. Normal gait. Skin: Patient has red scaly lesions over her arms and torso without exudate or signs of inflammation. Psychiatric: Patient is pleasant and cooperative. DISCHARGE PLAN: The patient will be discharged on a prednisone taper and the inhalers as stated above. Patient had no diagnosis of COPD before coming in to the hospital and should have pulmonary function tests as an outpatient to confirm her diagnosis. Patient should discuss with her primary care doctor the need for continuing all of her inhalers in the outpatient setting. The patient should discuss with her primary care doctor changing her antihypertensive medications to help preserve her kidney function and lower her blood pressure to below 150/90. Patient should follow up with home PT referral to help improve pulmonary function and exercise tolerance. Patient should follow up with her primary care doctor within a week. Patient should return to the hospital for increased shortness of breath. Patient should adhere to a heart healthy, consistent carbohydrate, no caffeine diet. ACTIVITY: As tolerated. TIME SPENT: Approximately 60 minutes were spent on this admission, 30 of which were spent [id number] with the patient discussing treatment plans and obtaining history and physical. NBA HAMMOND [id number]/CPS #: [id number] ROXANA
== END 2017-07-07 14:50 | disposition home or self-care (01) | DRG 191 ==
LOC: ED 14:03 → MEDTELE 18:10 → OBSVTOIN 07-04 16:29
PROVIDERS: ADMIT Internal Medicine; ATTEND Hospitalist
DX: J44.1 Chronic obstructive pulmonary disease with (acute) exacerbation (principal); N17.9 Acute kidney failure, unspecified; E11.65 Type 2 diabetes mellitus with hyperglycemia; I10 Essential (primary) hypertension; K58.0 Irritable bowel syndrome with diarrhea; E78.5 Hyperlipidemia, unspecified; L40.9 Psoriasis, unspecified; M48.00 Spinal stenosis, site unspecified; N32.81 Overactive bladder; E89.0 Postprocedural hypothyroidism; E66.3 Overweight; R40.2362 Coma scale, best motor response, obeys commands, at arrival to emergency department; R40.2142 Coma scale, eyes open, spontaneous, at arrival to emergency department; R40.2252 Coma scale, best verbal response, oriented, at arrival to emergency department; J06.9 Acute upper respiratory infection, unspecified; K57.90 Diverticulosis of intestine, part unspecified, without perforation or abscess without bleeding; G51.0 Bell's palsy; R74.8 Abnormal levels of other serum enzymes; Z79.82 Long term (current) use of aspirin; Z68.25 Body mass index [BMI] 25.0-25.9, adult; Z83.49 Family history of other endocrine, nutritional and metabolic diseases; Z83.3 Family history of diabetes mellitus; Z82.49 Family history of ischemic heart disease and other diseases of the circulatory system; Z90.49 Acquired absence of other specified parts of digestive tract; Z87.891 Personal history of nicotine dependence; Z90.710 Acquired absence of both cervix and uterus; Z88.0 Allergy status to penicillin
CPT/HCPCS: 36415; 71020; 78582; 80048; 80053; 83036; 83605; 83880; 84484; 85025; 85027; 85379; 87040; 87502; 93005; 93970; 94640; 94760; A9270-GY; A9540; A9558; G0378; J0456; J1644; J1650; J2920; J2930; J7512

== ENCOUNTER 2017-10-04 18:17 | Emergency (ER) | payer MEDICARE, OTHER ==
--- NOTE | 2017-10-04 21:34 | RAD ---
INDICATION: Constipation COMPARISON: None TECHNIQUE: 2 views the abdomen were obtained. FINDINGS: Gas and stool seen throughout the length of the colon. There is no definite pathologically dilated small or large bowel. Stool is seen filling the rectum measuring 6.7 cm in diameter. There is no evidence of free intraperitoneal air. Degenerative changes of the lower thoracic and lumbar spine includes loss of intervertebral disc height as well as dextroconvex curvature of the lumbar spine. IMPRESSION: IN THE CORRECT CLINICAL SETTING RADIOGRAPHIC FINDINGS COULD BE COMPATIBLE WITH FECAL IMPACTION OF THE RECTUM.
[2017-10-04] MEDS ORDERED: Mineral Oil ENEMA* 1 BOTTLE PR ONE (21:51)
[2017-10-04] MEDS ORDERED: Magnesium CITRATE* 300 ML BTL PO ONE (23:38)
[2017-10-05 00:12] VITALS: BP 163/90
--- NOTE | 2017-10-05 01:04 | ED ---
Jens Keene Gabriel scribrobert for Aakash Velazquez on 10/04/17 at 2051 . GI/ HPI - HPI Summary HPI Summary: This patient is a 82 year old F presenting to [facility] accompanied by her son with a chief complaint of constipation since 10/01/17. Patient reports inability to pass stool for 3 days. Patient denies ABD pain, n/v/d, and fever. Patient has a Hx of diverticulitis and states she usually has loose stool. Patient states it feels like her stool is too big to pass. - History of Current Complaint Chief Complaint: EDGeneral Time Seen by Provider: 10/04/17 20:45 Stated Complaint: CONSTIPATED Hx Obtained From: Patient Onset/Duration: Started Days Ago - 3, Still Present Timing: Constant Severity: Worse Since: Pain Intensity: 0 Associated Signs and Symptoms: Positive: Constipation. Negative: Nausea, Vomiting, Diarrhea, Fever, Abdominal Pain - Additional Pertinent History Primary Care Physician: [id number] - Allergy/Home Medications Allergies/Adverse Reactions: Allergies Allergy/AdvReac Type Severity Reaction Status Date / Time Amoxicillin AdvReac Diarrhea Verified 02/09/16 17:52 PMH/Surg Hx/FS Hx/Imm Hx Endocrine/Hematology History: Reports: Hx Diabetes, Hx Thyroid Disease Cardiovascular History: Reports: Hx Hypertension Respiratory History: Reports: Hx Asthma GI History: Reports: Hx Diverticulosis Sensory History: Reports: Hx Contacts or Glasses, Hx Hearing Problem - [place] Denies: Hx Hearing Aid Opthamlomology History: Reports: Hx Contacts or Glasses - Cancer History Hx Chemotherapy: No Hx Radiation Therapy: No - Surgical History Surgery Procedure, Year, and Place: bowel resection - adhesions - Immunization History Date of Influenza Vaccine: 2016 Infectious Disease History: No Infectious Disease History: Reports: Hx Shingles - in the s Denies: History Other Infectious Disease, Traveled Outside the [place] in Last 30 Days - Family History Known Family History: Positive: Other - neg: Breast CA - Social History Alcohol Use: None Hx Substance Use: No Substance Use Type: Reports: None Hx Tobacco Use: No Smoking Status (MU): Former Smoker Type: Cigarettes Have You Smoked in the Last Year: No Review of Systems Negative: Fever Positive: Other - constipation . Negative: Abdominal Pain, Vomiting, Diarrhea, Nausea All Other Systems Reviewed And Are Negative: Yes Physical Exam - Summary Physical Exam Summary: Appearance: Well appearing, no pain distress Skin: warm, dry, reflects adequate perfusion Head/face: normal Eyes: EOMI, RAJ ENT: normal Neck: supple, non-tender Respiratory: CTA, breath sounds present Cardiovascular: RRR, pulses symmetrical Abdomen: patient denies any tenderness, soft Bowel: present Musculoskeletal: normal, strength/ROM intact Neuro: normal, sensory motor intact, A&Ox3 Triage Information Reviewed: Yes Vital Signs On Initial Exam: Initial Vitals Temp Pulse Resp BP Pulse Ox 98.1 F 68 20 198/66 98 10/04/17 18:23 10/04/17 18:23 10/04/17 18:23 10/04/17 18:23 10/04/17 18:23 Vital Signs Reviewed: Yes Diagnostics - Vital Signs Vital Signs Temp Pulse Resp BP Pulse Ox 10/04/17 18:23 98.1 F 68 20 198/66 98 - Laboratory Lab Statement: Any lab studies that have been ordered have been reviewed, and results considered in the medical decision making process. - Radiology abdomen Xray Radiology Interpretation Completed By: Radiologist - IN THE CORRECT CLINICAL SETTING RADIOGRAPHIC FINDINGS COULD BE COMPATIBLE WITH FECAL IMPACTION OF THE RECTUM. ED physician has reviewed this radiology report. Re-Evaluation - Re-Evaluation First Eval Re-Evaluation Time: 23:32 Change: Unchanged Comment: Discussed xray results and care procedure for her constipation. GIGU Course/Dx - Course Assessment/Plan: This patient is a 82 year old F presenting to [facility] accompanied by her son with a chief complaint of constipation since 10/01/17. Patient reports inability to pass stool for 3 days. Abdomen XR reveals, per radiologist, IN THE CORRECT CLINICAL SETTING RADIOGRAPHIC FINDINGS COULD BE COMPATIBLE WITH. FECAL IMPACTION OF THE RECTUM. Dx of constipation. In the ED course the patient was given mineral oil and magnesium citrate. Patient will be discharged with prescription for magnesium citrate. The patient is agreeable with this plan. - Diagnoses Differential Diagnoses - Female: Constipation Provider Diagnoses: Constipation Discharge - Discharge Plan Condition: Stable Disposition: HOME Prescriptions: Magnesium CITRATE* [Citrate of Magnesia*] 300 ml PO SEE INSTRUCTIONS PRN #[id number] MDD 1 PRN Reason: Constipation Patient Education Materials: Magnesium Citrate (By mouth), Constipation (ED), High Fiber Diet (ED) Referrals: Balwinder Wilson MD [Primary Care Provider] - 3 Days Additional Instructions: RETURN TO THE EMERGENCY DEPARTMENT FOR CHANGING OR WORSENING SYMPTOMS. The documentation as recorded by the Jens valenzuela Gabriel accurately reflects the service I personally performed and the decisions made by , Aakash Velazquez.
--- NOTE | 2017-10-09 12:29 | PN ---
Progress Note - Progress Note Date of Service: 10/09/17 Note: Patient placed on macrobid which final culture shows is sensitive to. no further action needed.
== END 2017-10-05 00:13 | disposition home or self-care (01) ==
LOC: ED 18:17
DX: K59.00 Constipation, unspecified (principal); Z88.3 Allergy status to other anti-infective agents; Z87.891 Personal history of nicotine dependence
CPT/HCPCS: 74000; 99282; A9270-GY

== ENCOUNTER 2017-10-05 17:18 | Emergency (ER) | payer MEDICARE, OTHER ==
--- NOTE | 2017-10-05 18:40 | ED ---
GI/ HPI - HPI Summary HPI Summary: Pt here w/ fecal impaction. Was seen here yesterday for lack of BM in 3 days and rectal pain. XR reveals (in correct clinical setting) fecal impaction w/o obstruction. Pt was d/c'd with magnesium citrate to take at home but she's back today as she's still having rectal pain. She reports she only drank 1/2 of the mag citrate as she couldn't get the rest down - it upset her stomach, no vomiting. She's passing loose stool but feels pressure in rectum and this hasn' t resolved. Denies ab pain and no nausea at present. She does report last urine output was yesterday and she has some flank pain starting. H/o intestine and colon resection d/t "bad divericulitis". Denies fever, chills but no appetite since yesterday as she is worried about moving her bowels. - History of Current Complaint Chief Complaint: EDRectalPain Time Seen by Provider: 10/05/17 17:39 Stated Complaint: CONSTIPATION Hx Obtained From: Patient Pain Intensity: 10 - Additional Pertinent History Primary Care Physician: KERVIN - Allergy/Home Medications Allergies/Adverse Reactions: Allergies Allergy/AdvReac Type Severity Reaction Status Date / Time Amoxicillin AdvReac Diarrhea Verified 02/09/16 17:52 PMH/Surg Hx/FS Hx/Imm Hx Previously Healthy: Yes - fecal impaction dx'd 10/04/2017 w/o resolve Endocrine/Hematology History: Reports: Hx Diabetes, Hx Thyroid Disease Cardiovascular History: Reports: Hx Hypertension Respiratory History: Reports: Hx Asthma GI History: Reports: Hx Diverticulosis - surgical resection of colon and part of intestines d/t "bad diverticulitis" Sensory History: Reports: Hx Contacts or Glasses, Hx Hearing Problem - [place] Denies: Hx Hearing Aid Opthamlomology History: Reports: Hx Contacts or Glasses - Cancer History Hx Chemotherapy: No Hx Radiation Therapy: No - Surgical History Surgery Procedure, Year, and Place: bowel resection - adhesions - Immunization History Date of Influenza Vaccine: 2015 Infectious Disease History: No Infectious Disease History: Reports: Hx Shingles - in the 1970's Denies: History Other Infectious Disease, Traveled Outside the [place] in Last 30 Days - Family History Known Family History: Positive: None, Other - neg: Breast CA - Social History Occupation: Retired Lives: Alone - at her home Alcohol Use: None Hx Substance Use: No Substance Use Type: Reports: None Hx Tobacco Use: Yes - not currently Smoking Status (MU): Former Smoker Type: Cigarettes Have You Smoked in the Last Year: No Review of Systems Constitutional: Negative Negative: Fever, Chills Cardiovascular: Negative Negative: Palpitations, Chest Pain Respiratory: Negative Negative: Shortness Of Breath, Cough Gastrointestinal: Other - loose stool, rectal pressure Negative: Abdominal Pain, Vomiting Positive: see HPI Positive: Anxious All Other Systems Reviewed And Are Negative: Yes Physical Exam Triage Information Reviewed: Yes Vital Signs On Initial Exam: Initial Vitals Temp Pulse Resp BP Pulse Ox 96.5 F 83 17 160/59 97 10/05/17 17:24 10/05/17 17:24 10/05/17 17:24 10/05/17 17:24 10/05/17 17:24 Vital Signs Reviewed: Yes Appearance: Positive: No Pain Distress - generalized pallor - resting in bed comfortably - pain w/ standing in rectal area, Well-Nourished Skin: Positive: Warm, Dry Head/Face: Positive: Normal Head/Face Inspection Eyes: Positive: Normal, EOMI ENT: Positive: Hearing grossly normal Respiratory/Lung Sounds: Positive: Breath Sounds Present Abdomen Description: Positive: Soft, Distended. Negative: Nontender Bowel Sounds: Positive: Present Pelvic Exam: Positive: other - external gluteal crevice w/ erythema - no skin breakdown - TTP Musculoskeletal: Positive: Normal, Strength/ROM Intact - able to transition from sitting to standing on her own Neurological: Positive: Normal, Sensory/Motor Intact, Alert, Oriented to Person Place, Time Psychiatric: Positive: Anxious - but cooperative - Donato Coma Scale Coma Scale Total: 15 Procedures - Procedure Summary Procedure Summary: Pt rectal exam is w/o hemorrhoids, blood. She has a large brown stool protruding from her rectal sphincter. This was removed as well as other stool within her rectum via gloved and lubirated digital procedure. After multiple passes, pt started to have a natural BM on her own and was encouraged to sit on the commode where she proceeded to have a BM and pass urine. Pt reports feeling much better and color returned to her face. No syncope, fatigue or dizziness during this process. Diagnostics - Vital Signs Vital Signs Temp Pulse Resp BP Pulse Ox 10/05/17 18:00 82 150/47 98 10/05/17 17:56 88 97 10/05/17 17:55 136/60 10/05/17 17:24 96.5 F 83 17 160/59 97 - Laboratory Result Diagrams: 10/05/17 18:50 10/05/17 18:50 Lab Statement: Any lab studies that have been ordered have been reviewed, and results considered in the medical decision making process. Re-Evaluation - Re-Evaluation First Eval Change: Improved - flank pain and rectal pain improved after moving bowels GIGU Course/Dx - Course Course Of Treatment: Pt presents w/ 2nd night of fecal impaction. This was disimpacted by digital procedure by myself tonight and witnessed by Evelin Cannon. Pt sx improved. Her renal function was of concern and this was suspected to be from dehydration as she had not drank anything since leaving yesterday except for 1/2 bottle of magnesium citrate. She also reported no urinating today which could be from previously mentioned lack of PO intake and/or intrabdominal pressure occluding urine outflow. As soon as she moved her bowels, she urinated and was able to urinate again w/o pain or urgency. She was provided with IV fluids and tolerated PO. Sent home with repeat education about proper hydration. Son and daughter present for education session and agree she needs to drink more. She raised a concern that her urinary incontinence causes her to avoid drinking fluids as she then sits in her urine which has been causing a perineal rash. She has not been applying topical skin barrier but has some of this in her posession. Education about routine application to help heal current skin irritation and prevent future irritation. She will also f/u w/ urologist to discuss options for urinary incontinence. In the meantime, encouraged frequent trips to the bathroom to prevent wetting her undergarment to prevet moisture against perineal area. Reviewed danger s/sx of when to return to ED. Pt and daughter agree w/ plan. NOTE: after BM, repeat ab palpation still w/o pain - distention improved; CVA NTTP B/L. Although urine may be contaminated, pt has elevated WBC's w/ elevated neutrophils and recent conditions to trigger a UTI. Will start macrobid and cx's pending. Discussed case with Dr. Andrews - Diagnoses Provider Diagnoses: Fecal impaction in rectum, UTI (urinary tract infection) Discharge - Discharge Plan Condition: Stable Disposition: HOME Prescriptions: Nitrofurantoin Monohyd Macro [Macrobid] 100 mg PO BID #11 cap Patient Education Materials: Fecal Impaction (ED), Urinary Traction Infection in Older Adults (ED) Referrals: Balwinder Wilson MD [Primary Care Provider] - Additional Instructions: Stay hydrated - drink water, gatorade, broth (40-60 ounces per day) and eat foods with fluids such as fresh or cooked fruits and vegetables. Discuss urinary frequency with PCP or urologist - call [facility] to schedule an appointment. In an effort to protect your skin better, use barrier cream daily - you may use your prescription powder with this as well. Follow-up with PCP next week to recheck the area after treating consistently. Call [facility] to schedule an appointment. You also appear to have a UTI. An antibiotic has been prescribed - please complete course and follow-up with PCP this week. Call [facility] to schedule an appointment. *If you develop return of impaction, increase fluids as directed above, take stool softener along with magnesium citrate and use a glycerin suppository. If no relief, you may advance to a Fleet's enema. If still no relief, return to ED *If you develop fever, chills, vomiting, abdominal pain, intractable diarrhea with weakness, inability to urinate, chest pain or shortness of breath, return to ED
[2017-10-05 19:00] LABS: ABS Basophils 0.1 10^3/ul (0-0.2); ABS Eosinophils 0 10^3/ul (0-0.6); ABS Lymphocytes 0.4 10^3/ul (1.0-4.8); ABS Monocytes 1.1 10^3/ul (0-0.8); ABS Neutrophils 16.9 10^3/ul (1.5-7.7); ABS Nucleated RBC 0.01 10^3/ul; Eosinophil % 0 % (0-6); Hematocrit 39 % (35-47); Hemoglobin 13.1 g/dl (12.0-16.0); Lymphocyte % 2.2 % (25-47); Mean Corpuscular HGB Conc 33 g/dl (31-36); Mean Corpuscular Hemoglobin 31 pg (27-31); Mean Corpuscular Volume 92 fL (80-97); Mean Platelet Volume 9 um3 (7.4-10.4); Nucleated Red Blood Cells % 0.1; Platelet Count 214 10^3/ul (150-450); Red Blood Count 4.26 10^6/ul (4.0-5.4); Red Cell Distribution Width 15 % (10.5-15); White Blood Count 18.4 10^3/ul (3.5-10.8)
[2017-10-05 19:17] LABS: EGFR Non-African American 39.5 (>60)
[2017-10-05] MEDS ORDERED: NS 0.9% 500 ML* 500 ML IV ONE ×2 (20:43→20:48)
[2017-10-05] MEDS ORDERED: Magnesium Oxide TAB* 400 MG PO ONE (20:49)
[2017-10-05 22:34] LABS: Urine Appearance Cloudy; Urine Blood 2+ (Negative); Urine Color Yellow; Urine Ketones 1+ (Negative); Urine Protein 1+(30 mg/dL) (Negative); Urine Specific Gravity 1.018 (1.010-1.030); Urine Urobilinogen Negative (Negative)
[2017-10-05] MEDS ORDERED: Nitrofurantoin Macrocrystals* 100 MG CAP PO ONE ×2 (23:11→23:14)
[2017-10-05 23:36] VITALS: BP 153/77
--- NOTE | 2017-10-08 13:07 | ED ---
Progress - Progress Note Progress Note: Pt;s prelim urine cx reveals >100,000 e. coli. Was started on macrobid. Sens pending. No change at this time. Re-Evaluation - Re-Evaluation First Eval Change: Improved - flank pain and rectal pain improved after moving bowels Course/Dx - Course Course Of Treatment: Pt presents w/ 2nd night of fecal impaction. This was disimpacted by digital procedure by myself tonight and witnessed by Evelin Cannon. Pt sx improved. Her renal function was of concern and this was suspected to be from dehydration as she had not drank anything since leaving yesterday except for 1/2 bottle of magnesium citrate. She also reported no urinating today which could be from previously mentioned lack of PO intake and/or intrabdominal pressure occluding urine outflow. As soon as she moved her bowels, she urinated and was able to urinate again w/o pain or urgency. She was provided with IV fluids and tolerated PO. Sent home with repeat education about proper hydration. Son and daughter present for education session and agree she needs to drink more. She raised a concern that her urinary incontinence causes her to avoid drinking fluids as she then sits in her urine which has been causing a perineal rash. She has not been applying topical skin barrier but has some of this in her posession. Education about routine application to help heal current skin irritation and prevent future irritation. She will also f/u w/ urologist to discuss options for urinary incontinence. In the meantime, encouraged frequent trips to the bathroom to prevent wetting her undergarment to prevet moisture against perineal area. Reviewed danger s/sx of when to return to ED. Pt and daughter agree w/ plan. NOTE: after BM, repeat ab palpation still w/o pain - distention improved; CVA NTTP B/L. Although urine may be contaminated, pt has elevated WBC's w/ elevated neutrophils and recent conditions to trigger a UTI. Will start macrobid and cx's pending. Discussed case with Dr. Andrews - Diagnoses Provider Diagnoses: Fecal impaction in rectum, UTI (urinary tract infection)
== END 2017-10-05 23:36 | disposition home or self-care (01) ==
LOC: ED 17:18
DX: K56.41 Fecal impaction (principal); N39.0 Urinary tract infection, site not specified; Z88.3 Allergy status to other anti-infective agents; Z87.891 Personal history of nicotine dependence
CPT/HCPCS: 36415; 80053; 81003; 81015; 83605; 83690; 83735; 85025; 86140; 87077; 87086; 87186; 99283; A9270-GY

== ENCOUNTER 2021-04-03 10:50 | Inpatient (IN) ==
[2021-04-03] MEDS ORDERED: NS 0.9% 500 ml BAG 500 ML IV ONE (11:36)
[2021-04-03] MEDS ORDERED: NS 0.9% 1000 ml BAG 1,000 ML IV SCH (11:45)
[2021-04-03 11:59] LABS: ABS Eosinophils 0.1 10^3/ul (0-0.6); ABS Lymphocytes 0.6 10^3/ul (1.0-4.8); ABS Monocytes 0.8 10^3/ul (0-0.8); ABS Neutrophils 4.8 10^3/ul (1.5-7.7); Eosinophil % 0.9 %; Hematocrit 31 % (35-47); Hemoglobin 10.6 g/dL (12.0-16.0); Lymphocyte % 9.9 %; Mean Corpuscular HGB Conc 34 g/dL (31-36); Mean Corpuscular Hemoglobin 32 pg (27-31); Mean Corpuscular Volume 96 fL (80-97); Mean Platelet Volume 8.1 fL (7.4-10.4); Platelet Count 175 10^3/uL (150-450); Red Blood Count 3.27 10^6 /uL (3.70-4.87); Red Cell Distribution Width 15 % (10-15); White Blood Count 6.3 10^3/uL (3.5-10.8)
[2021-04-03 12:21] LABS: ALT 18 U/L (7-52); AST 42 U/L (13-39); Albumin 3.1 g/dL (3.2-5.2); Albumin/Globulin Ratio 1.6 (1-3); Alkaline Phosphatase 44 U/L (35-149); Anion Gap 7 mmol/L (2-11); Blood Urea Nitrogen 47 mg/dL (6-24); CO2 Carbon Dioxide 28 mmol/L (22-32); Calcium 8.8 mg/dL (8.6-10.3); Chloride 100 mmol/L (101-111); Creatine Kinase 718 U/L (10-223); EGFR African American 33.1 (>60); EGFR Non-African American 27.3 (>60); Globulin 1.9 g/dL (2-4); Glucose 96 mg/dL (70-100); Magnesium 1.4 mg/dL (1.9-2.7); Potassium 3.3 mmol/L (3.5-5.0); Sodium 135 mmol/L (135-145)
[2021-04-03] MEDS ORDERED: Magnesium Sulfate 2 gm BAG 2 GM/50 ML BAG IVPB ONE (13:25)
[2021-04-03] MEDS ORDERED: Potassium Chlor 20 meq TAB.ER PO ONE (13:25)
[2021-04-03 13:57] LABS: Urine Appearance Cloudy; Urine Bilirubin Negative (Negative); Urine Blood 1+ (Negative); Urine Color Yellow; Urine Glucose Negative (Negative); Urine Ketones Negative (Negative); Urine Nitrite Positive (Negative); Urine Protein Negative (Negative); Urine Specific Gravity 1.015 (1.002-1.030); Urine Urobilinogen Negative (Negative)
[2021-04-03 14:05] LABS: Urine Bacteria 3+ (Absent); Urine Red Blood Cell 2+(6-10/hpf) (Absent); Urine Squamous Epithelial Cell Present (Absent); Urine White Blood Cell 3+(>20/hpf) (Absent)
[2021-04-03] MEDS ORDERED: cefTRIAXone 1 gm/50 mL NS BAG 1 GM/50 ML BAG IV ONE (14:06)
[2021-04-03 15:32] LABS: Total Iron Binding Capacity 241 mcg/dL (250-450); Transferrin 172 mg/dL (203-362)
[2021-04-03 15:33] LABS: % Iron Saturation 8 % (15-55); Free T4 1.51 ng/dL (0.61-1.12); Iron < 20 ug/dL (50-212); Unsaturated Iron Binding < 226 ug/dL
[2021-04-03 15:52] LABS: Ferritin 126.4 ng/mL (11-307)
[2021-04-03 15:53] LABS: Folate 6.43 ng/mL (5.90-24.80)
[2021-04-03 15:55] LABS: Vitamin B12 612 pg/mL (180-914)
[2021-04-04 05:49] LABS: ABS Lymphocytes 0.4 10^3/ul (1.0-4.8); ABS Monocytes 0.5 10^3/ul (0-0.8); Eosinophil % 0.1 %; Hematocrit 33 % (35-47); Hemoglobin 11.1 g/dL (12.0-16.0); Lymphocyte % 5.6 %; Mean Corpuscular HGB Conc 34 g/dL (31-36); Mean Corpuscular Hemoglobin 33 pg (27-31); Mean Corpuscular Volume 96 fL (80-97); Mean Platelet Volume 8.5 fL (7.4-10.4); Platelet Count 189 10^3/uL (150-450); Red Cell Distribution Width 16 % (10-15)
[2021-04-04 06:09] LABS: Calcium 8.5 mg/dL (8.6-10.3); EGFR African American 48.6 (>60); EGFR Non-African American 40.2 (>60); Magnesium 1.7 mg/dL (1.9-2.7); Potassium 3.9 mmol/L (3.5-5.0)
[2021-04-04] MEDS ORDERED: Magnesium Sulfate IV 1GM/100ML 1 GM/100 ML BAG IV ONE (07:42)
[2021-04-04] MEDS: NFT: Coenzyme Q10 CAP (NF) 100MG PO SCH (08:42)
[2021-04-04] MEDS: NS 0.9% 1000 ml BAG 1,000 ML IV SCH ×2 (08:54→22:22)
[2021-04-04] MEDS: cefTRIAXone 1 gm/50 mL NS BAG 1 GM/50 ML BAG IVPB SCH (15:26)
[2021-04-05 06:10] LABS: Hematocrit 33 % (35-47); Hemoglobin 11.3 g/dL (12.0-16.0); Mean Corpuscular HGB Conc 35 g/dL (31-36); Mean Corpuscular Hemoglobin 33 pg (27-31); Mean Corpuscular Volume 96 fL (80-97); Mean Platelet Volume 8.6 fL (7.4-10.4); Platelet Count 196 10^3/uL (150-450); Red Blood Count 3.38 10^6 /uL (3.70-4.87); Red Cell Distribution Width 16 % (10-15)
[2021-04-05 06:35] LABS: Calcium 8.3 mg/dL (8.6-10.3); EGFR Non-African American 53.7 (>60); Magnesium 1.6 mg/dL (1.9-2.7); Potassium 3.4 mmol/L (3.5-5.0)
[2021-04-05] MEDS ORDERED: Potassium Chlor 20 meq TAB.ER PO ONE (07:29)
[2021-04-05] MEDS ORDERED: Magnesium Sulfate 2 gm BAG 2 GM/50 ML BAG IVPB ONE (07:29)
[2021-04-05] MEDS: NFT: Coenzyme Q10 CAP (NF) 100MG PO SCH (08:10)
[2021-04-05] MEDS: cefTRIAXone 1 gm/50 mL NS BAG 1 GM/50 ML BAG IVPB SCH (14:50)
[2021-04-06] MEDS: NS 0.9% 1000 ml BAG 1,000 ML IV SCH ×2 (05:20→22:11)
[2021-04-06 06:31] LABS: Hematocrit 28 % (35-47); Hemoglobin 9.7 g/dL (12.0-16.0); Mean Corpuscular HGB Conc 35 g/dL (31-36); Mean Corpuscular Hemoglobin 33 pg (27-31); Mean Corpuscular Volume 97 fL (80-97); Mean Platelet Volume 8.8 fL (7.4-10.4); Platelet Count 180 10^3/uL (150-450); Red Blood Count 2.91 10^6 /uL (3.70-4.87); Red Cell Distribution Width 16 % (10-15); White Blood Count 5.1 10^3/uL (3.5-10.8)
[2021-04-06 06:42] LABS: Calcium 7.9 mg/dL (8.6-10.3); EGFR African American 71.7 (>60); EGFR Non-African American 59.2 (>60); Magnesium 1.8 mg/dL (1.9-2.7); Potassium 4.4 mmol/L (3.5-5.0)
[2021-04-06] MEDS ORDERED: Magnesium Sulfate IV 1GM/100ML 1 GM/100 ML BAG IV ONE (07:13)
[2021-04-06] MEDS: NFT: Coenzyme Q10 CAP (NF) 100MG PO SCH (07:53)
[2021-04-06] MEDS: cefTRIAXone 1 gm/50 mL NS BAG 1 GM/50 ML BAG IVPB SCH (14:43)
[2021-04-06 16:24] LABS: Creatine Kinase 720 U/L (26 - 192)
[2021-04-07] MEDS: NFT: Coenzyme Q10 CAP (NF) 100MG PO SCH (10:03)
[2021-04-07] MEDS: cefTRIAXone 1 gm/50 mL NS BAG 1 GM/50 ML BAG IVPB SCH (16:07)
[2021-04-07] MEDS: NS 0.9% 1000 ml BAG 1,000 ML IV SCH (16:07)
[2021-04-08] MEDS: cefTRIAXone 1 gm/50 mL NS BAG 1 GM/50 ML BAG IVPB SCH (15:33)
[2021-04-08] MEDS: NS 0.9% 1000 ml BAG 1,000 ML IV SCH (20:09)
[2021-04-09] MEDS ORDERED: Saline NASAL SPRAY 0.65% BTL BOTH NARES PRN (11:11)
[2021-04-09] MEDS: NS 0.9% 1000 ml BAG 1,000 ML IV SCH (13:23)
[2021-04-11 12:44] VITALS: BP 130/44
[2021-04-11 17:17] LABS: Creatine Kinase BB 0 % (0); Creatine Kinase MB 0 % (0)
== END 2021-04-11 14:00 | DRG 690 ==
LOC: ED 10:50 → MEDTELE 10:50 → MED 04-06 02:42
PROVIDERS: ADMIT Hospitalist; ATTEND Internal Medicine

== ENCOUNTER 2021-05-24 11:40 | Observation (INO) ==
[2021-05-24 13:22] LABS: ABS Eosinophils 0.1 10^3/ul (0-0.6); ABS Lymphocytes 0.6 10^3/ul (1.0-4.8); ABS Monocytes 0.8 10^3/ul (0-0.8); ABS Neutrophils 10.5 10^3/ul (1.5-7.7); Eosinophil % 0.5 %; Hematocrit 34 % (35-47); Hemoglobin 11.4 g/dL (12.0-16.0); Lymphocyte % 5.3 %; Mean Corpuscular HGB Conc 33 g/dL (31-36); Mean Corpuscular Hemoglobin 32 pg (27-31); Mean Corpuscular Volume 97 fL (80-97); Mean Platelet Volume 7.7 fL (7.4-10.4); Platelet Count 275 10^3/uL (150-450); Red Blood Count 3.54 10^6 /uL (3.70-4.87); Red Cell Distribution Width 15 % (10-15)
[2021-05-24 13:42] LABS: ALT 6 U/L (7-52); AST 10 U/L (13-39); Albumin 2.9 g/dL (3.2-5.2); Albumin/Globulin Ratio 1.4 (1-3); Alkaline Phosphatase 63 U/L (35-149); Anion Gap 5 mmol/L (2-11); Blood Urea Nitrogen 19 mg/dL (6-24); CO2 Carbon Dioxide 30 mmol/L (22-32); Calcium 8.3 mg/dL (8.6-10.3); Chloride 103 mmol/L (101-111); EGFR African American 62.7 (>60); EGFR Non-African American 51.8 (>60); Globulin 2.1 g/dL (2-4); Glucose 104 mg/dL (70-100); Magnesium 1.1 mg/dL (1.9-2.7); Potassium 3.7 mmol/L (3.5-5.0); Sodium 138 mmol/L (135-145)
[2021-05-24 13:44] LABS: Troponin I 0.03 ng/mL (<0.03)
[2021-05-24 14:40] LABS: TSH Ultra Thyroid Stim Horm 36.25 mcIU/mL (0.34-5.60)
[2021-05-24] MEDS ORDERED: Magnesium Sulfate 2 gm BAG 2 GM/50 ML BAG IVPB ONE ×2 (15:12→17:05)
[2021-05-24] MEDS ORDERED: NS 0.9% 1000 ml BAG 1,000 ML IV ONE (15:12)
[2021-05-24] MEDS ORDERED: Ondansetron 4 mg VIAL 2 MG/ML 2 ml VIAL IV PRN (18:00)
[2021-05-24 18:21] LABS: Troponin I 0.04 ng/mL (<0.03)
[2021-05-24 18:38] LABS: Urine Appearance Cloudy; Urine Bilirubin Negative (Negative); Urine Blood 1+ (Negative); Urine Color Yellow; Urine Glucose Negative (Negative); Urine Ketones Negative (Negative); Urine Nitrite Negative (Negative); Urine Protein 2+(100 mg/dL) (Negative); Urine Specific Gravity 1.012 (1.002-1.030); Urine Urobilinogen Negative (Negative)
[2021-05-24 18:46] LABS: Urine Amorphous Crystals Present (Absent); Urine Bacteria 1+ (Absent); Urine Red Blood Cell Trace(0-2/hpf) (Absent); Urine Squamous Epithelial Cell Present (Absent); Urine White Blood Cell 3+(>20/hpf) (Absent)
[2021-05-25 05:53] LABS: CO2 Carbon Dioxide 24 mmol/L (22-32); Chloride 105 mmol/L (101-111); Sodium 135 mmol/L (135-145)
[2021-05-25 05:56] LABS: Anion Gap 6 mmol/L (2-11)
[2021-05-25 05:59] LABS: Blood Urea Nitrogen 22 mg/dL (6-24); EGFR African American 67.3 (>60); EGFR Non-African American 55.6 (>60); Glucose 94 mg/dL (70-100)
[2021-05-25] MEDS ORDERED: COENZYME Q10 PO SCH (09:00)
[2021-05-25 10:12] LABS: ABS Lymphocytes 0.9 10^3/ul (1.0-4.8); ABS Monocytes 0.5 10^3/ul (0-0.8); ABS Neutrophils 7.4 10^3/ul (1.5-7.7); Eosinophil % 0.2 %; Hematocrit 32 % (35-47); Lymphocyte % 9.7 %; Mean Corpuscular HGB Conc 34 g/dL (31-36); Mean Corpuscular Hemoglobin 33 pg (27-31); Mean Corpuscular Volume 97 fL (80-97); Mean Platelet Volume 8.2 fL (7.4-10.4); Platelet Count 275 10^3/uL (150-450); Red Blood Count 3.29 10^6 /uL (3.70-4.87); Red Cell Distribution Width 15 % (10-15); White Blood Count 8.8 10^3/uL (3.5-10.8)
[2021-05-25 10:27] LABS: Potassium Redraw 3.9 mmol/L (3.5-5.0)
[2021-05-25 13:47] LABS: Magnesium 1.8 mg/dL (1.9-2.7)
[2021-05-25 17:39] VITALS: BP 154/56
== END 2021-05-25 18:25 | disposition home or self-care (01) ==
LOC: MEDTELE 11:40 → ED 11:40
PROVIDERS: ADMIT Internal Medicine; ATTEND Internal Medicine

== ENCOUNTER 2022-09-23 08:38 | Inpatient (IN) ==
[2022-09-23] MEDS ORDERED: Magnesium Hydroxide LIQ 30 ML UDC PO PRN (12:36)
[2022-09-23] MEDS ORDERED: Senna TAB 8.6 mg TAB PO PRN (12:36)
[2022-09-23 20:21] LABS: Urine Appearance Clear; Urine Bilirubin Negative (Negative); Urine Color Yellow; Urine Glucose Negative (Negative); Urine Ketones Negative (Negative); Urine Specific Gravity 1.015 (1.005-1.030)
[2022-09-23 20:22] LABS: Urine Blood Trace (Intact) (Negative); Urine Nitrite Negative (Negative); Urine Protein 1+ (30 mg/dL) (Negative); Urine Urobilinogen 0.2 (Negative) (Negative)
[2022-09-23 20:38] LABS: Urine Bacteria 1+ (Absent); Urine Red Blood Cell Trace(0-2/hpf) (Absent); Urine Squamous Epithelial Cell Present (Absent); Urine White Blood Cell Trace(0-5/hpf) (Absent)
[2022-09-23] MEDS: Nystatin TOP POWDER 15 GM BTL TOPICAL SCH (23:03)
[2022-09-24 05:59] LABS: ABS Lymphocytes 0.4 10^3/ul (1.0-4.8); ABS Monocytes 0.3 10^3/ul (0-0.8); ABS Neutrophils 9.6 10^3/ul (1.5-7.7); Eosinophil % 0.2 %; Hematocrit 27 % (35-47); Mean Corpuscular HGB Conc 34 g/dL (31-36); Mean Corpuscular Hemoglobin 31 pg (27-31); Mean Corpuscular Volume 93 fL (80-97); Mean Platelet Volume 8.3 fL (7.4-10.4); Nucleated Red Blood Cells % 0.1; Platelet Count 244 10^3/uL (150-450); Red Blood Count 2.88 10^6 /uL (3.70-4.87); Red Cell Distribution Width 15 % (10-15); White Blood Count 10.4 10^3/uL (3.5-10.8)
[2022-09-24] MEDS: Nystatin TOP POWDER 15 GM BTL TOPICAL SCH ×2 (11:20→20:33)
[2022-09-25] MEDS: Nystatin TOP POWDER 15 GM BTL TOPICAL SCH ×2 (08:18→21:41)
[2022-09-26 09:55] LABS: ABS Lymphocytes 0.6 10^3/ul (1.0-4.8); ABS Monocytes 0.3 10^3/ul (0-0.8); ABS Neutrophils 4.6 10^3/ul (1.5-7.7); Eosinophil % 0.4 %; Hematocrit 24 % (35-47); Hemoglobin 8.1 g/dL (12.0-16.0); Lymphocyte % 10.2 %; Mean Corpuscular HGB Conc 34 g/dL (31-36); Mean Corpuscular Hemoglobin 32 pg (27-31); Mean Corpuscular Volume 95 fL (80-97); Mean Platelet Volume 7.4 fL (7.4-10.4); Nucleated Red Blood Cells % 0.1; Platelet Count 301 10^3/uL (150-450); Red Cell Distribution Width 15 % (10-15); White Blood Count 5.5 10^3/uL (3.5-10.8)
[2022-09-26 10:13] LABS: Albumin 2.5 g/dL (3.2-5.2); Albumin/Globulin Ratio 1.6 (1-3); Calcium 7.7 mg/dL (8.6-10.3); Globulin 1.6 g/dL (2-4); Total Bilirubin 0.7 mg/dL (0.2-1.0); Total Protein 4.1 g/dL (6.4-8.9); eGFR CKD-EPI 48.3 (>60)
[2022-09-26 10:16] LABS: Potassium 5.2 mmol/L (3.5-5.0)
[2022-09-26] MEDS: Nystatin TOP POWDER 15 GM BTL TOPICAL SCH ×2 (16:36→20:30)
[2022-09-27] MEDS: Nystatin TOP POWDER 15 GM BTL TOPICAL SCH ×2 (09:28→21:06)
[2022-09-28] MEDS: Nystatin TOP POWDER 15 GM BTL TOPICAL SCH ×2 (15:10→21:39)
[2022-09-29] MEDS: Nystatin TOP POWDER 15 GM BTL TOPICAL SCH ×2 (09:35→20:23)
[2022-09-30] MEDS: Nystatin TOP POWDER 15 GM BTL TOPICAL SCH ×2 (09:54→21:13)
[2022-10-01 07:04] LABS: ABS Lymphocytes 0.5 10^3/ul (1.0-4.8); ABS Monocytes 0.4 10^3/ul (0-0.8); ABS Neutrophils 7.9 10^3/ul (1.5-7.7); Eosinophil % 0.1 %; Hematocrit 23 % (35-47); Hemoglobin 7.8 g/dL (12.0-16.0); Lymphocyte % 5.5 %; Mean Corpuscular HGB Conc 34 g/dL (31-36); Mean Corpuscular Hemoglobin 32 pg (27-31); Mean Corpuscular Volume 95 fL (80-97); Mean Platelet Volume 6.9 fL (7.4-10.4); Platelet Count 310 10^3/uL (150-450); Red Blood Count 2.41 10^6 /uL (3.70-4.87); Red Cell Distribution Width 16 % (10-15); White Blood Count 8.8 10^3/uL (3.5-10.8)
[2022-10-01] MEDS: Nystatin TOP POWDER 15 GM BTL TOPICAL SCH ×2 (09:06→22:05)
[2022-10-02 06:58] LABS: ABS Lymphocytes 0.5 10^3/ul (1.0-4.8); ABS Monocytes 0.4 10^3/ul (0-0.8); ABS Neutrophils 6.8 10^3/ul (1.5-7.7); Eosinophil % 0.3 %; Hematocrit 21 % (35-47); Hemoglobin 7.1 g/dL (12.0-16.0); Lymphocyte % 6.6 %; Mean Corpuscular HGB Conc 34 g/dL (31-36); Mean Corpuscular Hemoglobin 33 pg (27-31); Mean Corpuscular Volume 95 fL (80-97); Mean Platelet Volume 6.7 fL (7.4-10.4); Platelet Count 287 10^3/uL (150-450); Red Blood Count 2.17 10^6 /uL (3.70-4.87); Red Cell Distribution Width 16 % (10-15); White Blood Count 7.7 10^3/uL (3.5-10.8)
[2022-10-02 07:56] LABS: Albumin 2.3 g/dL (3.2-5.2); Albumin/Globulin Ratio 1.5 (1-3); Calcium 7.1 mg/dL (8.6-10.3); Globulin 1.5 g/dL (2-4); Potassium 4.4 mmol/L (3.5-5.0); Total Bilirubin 0.5 mg/dL (0.2-1.0); Total Protein 3.8 g/dL (6.4-8.9); eGFR CKD-EPI 54.2 (>60)
[2022-10-02] MEDS: Nystatin TOP POWDER 15 GM BTL TOPICAL SCH ×2 (12:02→20:49)
[2022-10-03 07:16] LABS: ABS Lymphocytes 0.6 10^3/ul (1.0-4.8); ABS Monocytes 0.4 10^3/ul (0-0.8); ABS Neutrophils 5.5 10^3/ul (1.5-7.7); Eosinophil % 0.1 %; Hematocrit 19 % (35-47); Hemoglobin 6.2 g/dL (12.0-16.0); Mean Corpuscular HGB Conc 33 g/dL (31-36); Mean Corpuscular Hemoglobin 32 pg (27-31); Mean Corpuscular Volume 97 fL (80-97); Platelet Count 252 10^3/uL (150-450); Red Blood Count 1.93 10^6 /uL (3.70-4.87); Red Cell Distribution Width 16 % (10-15); White Blood Count 6.5 10^3/uL (3.5-10.8)
[2022-10-03] MEDS: Nystatin TOP POWDER 15 GM BTL TOPICAL SCH ×2 (10:17→22:48)
[2022-10-04 09:11] LABS: ABS Lymphocytes 0.5 10^3/ul (1.0-4.8); ABS Monocytes 0.4 10^3/ul (0-0.8); ABS Neutrophils 5.5 10^3/ul (1.5-7.7); Eosinophil % 0.3 %; Hematocrit 26 % (35-47); Hemoglobin 8.7 g/dL (12.0-16.0); Lymphocyte % 8.2 %; Mean Corpuscular HGB Conc 34 g/dL (31-36); Mean Corpuscular Hemoglobin 32 pg (27-31); Mean Corpuscular Volume 93 fL (80-97); Mean Platelet Volume 7.2 fL (7.4-10.4); Platelet Count 277 10^3/uL (150-450); Red Blood Count 2.77 10^6 /uL (3.70-4.87); Red Cell Distribution Width 19 % (10-15); White Blood Count 6.5 10^3/uL (3.5-10.8)
[2022-10-04] MEDS: Nystatin TOP POWDER 15 GM BTL TOPICAL SCH ×2 (10:00→20:39)
[2022-10-05] MEDS: Nystatin TOP POWDER 15 GM BTL TOPICAL SCH ×2 (09:57→22:42)
[2022-10-06] MEDS: Nystatin TOP POWDER 15 GM BTL TOPICAL SCH ×2 (08:10→20:31)
[2022-10-06 09:16] LABS: ABS Lymphocytes 0.6 10^3/ul (1.0-4.8); ABS Monocytes 0.5 10^3/ul (0-0.8); ABS Neutrophils 4.5 10^3/ul (1.5-7.7); Eosinophil % 0.9 %; Hematocrit 25 % (35-47); Hemoglobin 8.2 g/dL (12.0-16.0); Lymphocyte % 10.1 %; Mean Corpuscular HGB Conc 33 g/dL (31-36); Mean Corpuscular Hemoglobin 31 pg (27-31); Mean Corpuscular Volume 93 fL (80-97); Mean Platelet Volume 7.3 fL (7.4-10.4); Platelet Count 320 10^3/uL (150-450); Red Blood Count 2.68 10^6 /uL (3.70-4.87); Red Cell Distribution Width 18 % (10-15); White Blood Count 5.6 10^3/uL (3.5-10.8)
[2022-10-06 12:15] LABS: Total Iron Binding Capacity 225 mcg/dL (250-450); Transferrin 161 mg/dL (203-362)
[2022-10-06 12:25] LABS: % Iron Saturation 9 % (15-55); Iron < 20 ug/dL (50-212); Unsaturated Iron Binding 205 ug/dL
[2022-10-06 12:39] LABS: Folate 8.57 ng/mL (5.90-24.80)
[2022-10-06 12:40] LABS: Vitamin B12 457 pg/mL (180-914)
[2022-10-06] MEDS: Iron Sucrose 200 MG in NS 0.9% 100 ml BAG 100 ML IVPB SCH (14:34)
[2022-10-07 06:45] LABS: ABS Lymphocytes 0.4 10^3/ul (1.0-4.8); ABS Monocytes 0.4 10^3/ul (0-0.8); ABS Neutrophils 4.3 10^3/ul (1.5-7.7); Eosinophil % 0.4 %; Hematocrit 23 % (35-47); Hemoglobin 7.5 g/dL (12.0-16.0); Lymphocyte % 8.7 %; Mean Corpuscular HGB Conc 32 g/dL (31-36); Mean Corpuscular Hemoglobin 30 pg (27-31); Mean Corpuscular Volume 94 fL (80-97); Mean Platelet Volume 7.3 fL (7.4-10.4); Nucleated Red Blood Cells % 0.1; Platelet Count 337 10^3/uL (150-450); Red Blood Count 2.45 10^6 /uL (3.70-4.87); Red Cell Distribution Width 18 % (10-15); White Blood Count 5.2 10^3/uL (3.5-10.8)
[2022-10-07] MEDS ORDERED: Ondansetron ODT 4 mg TAB 4 MG TAB SL PRN (09:38)
[2022-10-07] MEDS ORDERED: Ondansetron ODT 4 mg TAB 4 MG TAB ONE (09:59)
[2022-10-07] MEDS: Iron Sucrose 200 MG in NS 0.9% 100 ml BAG 100 ML IVPB SCH (10:09)
[2022-10-07] MEDS: Nystatin TOP POWDER 15 GM BTL TOPICAL SCH ×2 (10:40→21:18)
[2022-10-08 06:18] LABS: Hematocrit 21 % (35-47)
[2022-10-08] MEDS: Iron Sucrose 200 MG in NS 0.9% 100 ml BAG 100 ML IVPB SCH (08:47)
[2022-10-08] MEDS: Nystatin TOP POWDER 15 GM BTL TOPICAL SCH ×2 (09:00→21:46)
[2022-10-08 15:22] LABS: Albumin 2.1 g/dL (3.2-5.2); Calcium 7.2 mg/dL (8.6-10.3); Potassium 4.9 mmol/L (3.5-5.0); Total Bilirubin 0.4 mg/dL (0.2-1.0)
[2022-10-08 15:28] LABS: Albumin/Globulin Ratio 1.2 (1-3); Globulin 1.7 g/dL (2-4); Total Protein 3.8 g/dL (6.4-8.9); eGFR CKD-EPI 48.9 (>60)
[2022-10-08 15:49] LABS: ABS Eosinophils 0.1 10^3/ul (0-0.6); ABS Lymphocytes 0.6 10^3/ul (1.0-4.8); ABS Monocytes 0.8 10^3/ul (0-0.8); ABS Neutrophils 5.6 10^3/ul (1.5-7.7); Corrected Retic Count 1.4 % (0.5-1.5); Eosinophil % 1.5 %; Hematocrit 25 % (35-47); Hematocrit for Retic CNT 25 % (35-47); Hemoglobin 8.2 g/dL (12.0-16.0); Immature Retic Fraction 0.56; Lymphocyte % 8.2 %; Mean Corpuscular HGB Conc 33 g/dL (31-36); Mean Corpuscular Hemoglobin 30 pg (27-31); Mean Corpuscular Volume 93 fL (80-97); Mean Platelet Volume 7.4 fL (7.4-10.4); Platelet Count 329 10^3/uL (150-450); RBC Retic Count 2.73 10^6/uL (3.70-4.87); Red Blood Count 2.73 10^6 /uL (3.70-4.87); Red Cell Distribution Width 18 % (10-15); White Blood Count 7.1 10^3/uL (3.5-10.8)
[2022-10-09 07:35] LABS: ABS Lymphocytes 0.4 10^3/ul (1.0-4.8); ABS Monocytes 0.5 10^3/ul (0-0.8); Eosinophil % 0.6 %; Hematocrit 26 % (35-47); Hemoglobin 8.7 g/dL (12.0-16.0); Lymphocyte % 7.4 %; Mean Corpuscular HGB Conc 34 g/dL (31-36); Mean Corpuscular Hemoglobin 31 pg (27-31); Mean Corpuscular Volume 92 fL (80-97); Mean Platelet Volume 7.5 fL (7.4-10.4); Platelet Count 335 10^3/uL (150-450); Red Blood Count 2.78 10^6 /uL (3.70-4.87); Red Cell Distribution Width 18 % (10-15); White Blood Count 5.9 10^3/uL (3.5-10.8)
[2022-10-09 08:03] LABS: Albumin 2.3 g/dL (3.2-5.2); Calcium 7.4 mg/dL (8.6-10.3); Potassium 4.8 mmol/L (3.5-5.0); Total Bilirubin 0.6 mg/dL (0.2-1.0)
[2022-10-09 08:09] LABS: Albumin/Globulin Ratio 1.4 (1-3); Globulin 1.7 g/dL (2-4); eGFR CKD-EPI 53.5 (>60)
[2022-10-09] MEDS: Iron Sucrose 200 MG in NS 0.9% 100 ml BAG 100 ML IVPB SCH (13:44)
[2022-10-09] MEDS: Nystatin TOP POWDER 15 GM BTL TOPICAL SCH ×2 (13:44→20:10)
[2022-10-09] MEDS ORDERED: Magnesium Sulfate 2 gm BAG 2 GM/50 ML BAG IVPB ONE (15:17)
[2022-10-10 05:09] VITALS: BP 140/57
[2022-10-10 06:42] LABS: ABS Lymphocytes 0.4 10^3/ul (1.0-4.8); ABS Monocytes 0.4 10^3/ul (0-0.8); ABS Neutrophils 5.4 10^3/ul (1.5-7.7); Eosinophil % 0.4 %; Hematocrit 25 % (35-47); Hemoglobin 8.2 g/dL (12.0-16.0); Lymphocyte % 6.3 %; Mean Corpuscular HGB Conc 33 g/dL (31-36); Mean Corpuscular Hemoglobin 31 pg (27-31); Mean Corpuscular Volume 93 fL (80-97); Mean Platelet Volume 7.3 fL (7.4-10.4); Platelet Count 360 10^3/uL (150-450); Red Blood Count 2.67 10^6 /uL (3.70-4.87); Red Cell Distribution Width 18 % (10-15); White Blood Count 6.2 10^3/uL (3.5-10.8)
[2022-10-10] MEDS ORDERED: Magnesium Sulfate 2 gm BAG 2 GM/50 ML BAG IVPB ONE (11:00)
[2022-10-10] MEDS: Iron Sucrose 200 MG in NS 0.9% 100 ml BAG 100 ML IVPB SCH (12:57)
[2022-10-10] MEDS: Nystatin TOP POWDER 15 GM BTL TOPICAL SCH (12:58)
== END 2022-10-10 16:18 | disposition home health service (06) | DRG 559 ==
LOC: PMRU 09:34
PROVIDERS: ADMIT Physical Medicine & Rehabilitation; ATTEND Physical Medicine & Rehabilitation

== ENCOUNTER 2023-05-14 18:08 | Inpatient (IN) ==
[2023-05-14 23:14] LABS: ABS Lymphocytes 0.3 10^3/uL (1.0-4.8); ABS Monocytes 0.2 10^3/uL (0.0-0.9); ABS Neutrophils 7.2 10^3/uL (1.5-7.6); ABS Nucleated RBC 0.01 10^3/ul; Hematocrit 30.2 % (35-45); Hemoglobin 10.2 g/dL (11.5-14.3); Lymphocyte % 4.1 %; Mean Corpuscular Hemoglobin 32.4 pg (27-33); Mean Corpuscular Hgb Conc 33.9 g/dL (31-36); Mean Corpuscular Volume 95.6 fL (80-97); Nucleated Red Blood Cells % 0.1 /100 WBC (0.0-0.4); Platelet Count 203 10^3/uL (150-450); Red Blood Count 3.16 10^6/uL (3.63-4.92); Red Cell Distribution Width 16.8 % (12-17); White Blood Count 7.7 10^3/uL (3.8-11.8)
[2023-05-14 23:25] LABS: Activated Partial Thrombo Time 30.7 seconds (26.0-38.0); INR 1.29 (0.88-1.18)
[2023-05-14 23:30] LABS: Albumin 3.2 g/dL (3.2-5.2); Albumin/Globulin Ratio 1.1 (1-3); C Reactive Protein 78.92 mg/L (<8.01); Calcium 8.6 mg/dL (8.6-10.3); Creatinine, Serum 1.48 mg/dL (0.51-0.95); Globulin 2.8 g/dL (2-4); Potassium 3.1 mmol/L (3.5-5.0); Total Bilirubin 0.8 mg/dL (0.2-1.0); eGFR CKD-EPI 33.6 (>60)
[2023-05-14] MEDS ORDERED: Dextrose 50% Syringe 50 ml 25 GM/50 ML SYRINGE IV PUSH ONE (23:33)
[2023-05-14] MEDS ORDERED: Dextrose 50% Syringe 50 ml 25 GM/50 ML SYRINGE ONE (23:33)
[2023-05-15] MEDS ORDERED: Lactated Ringers 1000 ml BAG 1,000 ML IV ONE (00:38)
[2023-05-15 01:20] LABS: High Sensitivity Troponin 1 Hr 35 pg/mL (<15)
[2023-05-15 01:51] LABS: TSH Ultra Thyroid Stim Horm 1.24 mcIU/mL (0.34-5.60)
[2023-05-15 01:53] LABS: Free T4 1.56 ng/dL (0.61-1.12)
[2023-05-15] MEDS ORDERED: Azithromycin 500 mg/250 ml NS 500 MG/250 ML BAG IVPB ONE (03:47)
[2023-05-15] MEDS ORDERED: cefTRIAXone 1 gm/50 mL D5W 1 GM/50 ML BAG IV ONE (03:47)
[2023-05-15 06:15] LABS: Urine Appearance Cloudy; Urine Bilirubin Negative (Negative); Urine Blood Negative (Negative); Urine Color Yellow; Urine Glucose Negative (Negative); Urine Ketones Negative (Negative); Urine Nitrite Negative (Negative); Urine Protein 2+(100 mg/dL) (Negative); Urine Specific Gravity 1.012 (1.002-1.030); Urine Urobilinogen Negative (Negative)
[2023-05-15] MEDS ORDERED: Piperacillin/Tazobac 3.375 BAG 3.375 GM/100 ML BAG IV ONE (06:16)
[2023-05-15 06:30] LABS: Urine Bacteria Absent (Absent); Urine Red Blood Cell 1+(3-5/hpf) (Absent); Urine Squamous Epithelial Cell Present (Absent); Urine White Blood Cell Trace(0-5/hpf) (Absent)
[2023-05-15] MEDS ORDERED: Zosyn per Pharmacy NOTE FOLLOW UP SCH (07:00)
[2023-05-15] MEDS: KCL 20 MEQ/100 ML IVPREMIX 20 MEQ/100 ML BAG IV SCH ×2 (09:36→12:51)
[2023-05-15] MEDS: Enoxaparin 30 MG/0.3 ML SYR SUBCUT SCH (09:38)
[2023-05-15] MEDS: ZOSYN 3.375 GM Q8H per EXTENDED INFUSION IV SCH ×2 (16:53→23:40)
[2023-05-16] MEDS ORDERED: cefTRIAXone 1 gm/50 mL D5W 1 GM/50 ML BAG IV SCH (04:00)
[2023-05-16] MEDS ORDERED: Azithromycin 500 mg/250 ml NS 500 MG/250 ML BAG IVPB SCH (05:00)
[2023-05-16 06:45] LABS: ABS Basophils 0.1 10^3/uL (0.0-0.1); ABS Lymphocytes 0.6 10^3/uL (1.0-4.8); ABS Monocytes 0.4 10^3/uL (0.0-0.9); ABS Neutrophils 5.6 10^3/uL (1.5-7.6); ABS Nucleated RBC 0.01 10^3/ul; Eosinophil % 0.4 %; Hematocrit 26.4 % (35-45); Hemoglobin 9.1 g/dL (11.5-14.3); Lymphocyte % 9.1 %; Mean Corpuscular Hemoglobin 32.3 pg (27-33); Mean Corpuscular Hgb Conc 34.3 g/dL (31-36); Mean Corpuscular Volume 94.1 fL (80-97); Nucleated Red Blood Cells % 0.1 /100 WBC (0.0-0.4); Platelet Count 184 10^3/uL (150-450); Red Cell Distribution Width 16.6 % (12-17); White Blood Count 6.7 10^3/uL (3.8-11.8)
[2023-05-16 06:59] LABS: Calcium 7.8 mg/dL (8.6-10.3); Creatinine, Serum 1.57 mg/dL (0.51-0.95); Magnesium 1.1 mg/dL (1.9-2.7); Potassium 3.6 mmol/L (3.5-5.0); eGFR CKD-EPI 31.3 (>60)
[2023-05-16] MEDS ORDERED: Magnesium Sulf 4 GM/100 ML IV 4,000 MG/100 ML BAG IVPB ONE (07:47)
[2023-05-16] MEDS: Enoxaparin 30 MG/0.3 ML SYR SUBCUT SCH (09:45)
[2023-05-16] MEDS: ZOSYN 3.375 GM Q8H per EXTENDED INFUSION IV SCH (11:12)
[2023-05-16] MEDS ORDERED: ZOSYN 3.375 GM Q8H per EXTENDED INFUSION IV SCH (12:00)
[2023-05-16] MEDS ORDERED: Lactated Ringers 1000 ml BAG 1,000 ML IV ONE (16:52)
[2023-05-16] MEDS: Amoxicillin/Clavul 875/125 TAB (Augmentin 875 tab) PO SCH (21:07)
[2023-05-17 06:23] LABS: ABS Lymphocytes 0.4 10^3/uL (1.0-4.8); ABS Monocytes 0.2 10^3/uL (0.0-0.9); ABS Neutrophils 2.6 10^3/uL (1.5-7.6); Eosinophil % 1.2 %; Hematocrit 26.4 % (35-45); Hemoglobin 8.9 g/dL (11.5-14.3); Mean Corpuscular Hemoglobin 32.1 pg (27-33); Mean Corpuscular Hgb Conc 33.8 g/dL (31-36); Mean Platelet Volume 8.6 fL (7.5-11.2); Nucleated Red Blood Cells % 0.1 /100 WBC (0.0-0.4); Platelet Count 167 10^3/uL (150-450); Red Blood Count 2.78 10^6/uL (3.63-4.92); White Blood Count 3.3 10^3/uL (3.8-11.8)
[2023-05-17 06:42] LABS: Calcium 7.9 mg/dL (8.6-10.3); Creatinine, Serum 1.49 mg/dL (0.51-0.95); Magnesium 2.1 mg/dL (1.9-2.7); Phosphorus 3.4 mg/dL (2.5-5.0); Potassium 3.5 mmol/L (3.5-5.0); eGFR CKD-EPI 33.4 (>60)
[2023-05-17] MEDS: Amoxicillin/Clavul 875/125 TAB (Augmentin 875 tab) PO SCH (10:38)
[2023-05-17] MEDS: Aspirin EC 81 mg TAB.EC (enteric coated) PO SCH (10:38)
[2023-05-17] MEDS: Enoxaparin 30 MG/0.3 ML SYR SUBCUT SCH (10:44)
[2023-05-17] MEDS ORDERED: NS 0.9% 1000 ml BAG 1,000 ML IV SCH (14:45)
[2023-05-17 16:05] LABS: ABS Eosinophils 0.1 10^3/uL (0.0-0.5); ABS Lymphocytes 0.4 10^3/uL (1.0-4.8); ABS Monocytes 0.2 10^3/uL (0.0-0.9); ABS Neutrophils 3.8 10^3/uL (1.5-7.6); Eosinophil % 1.2 %; Hematocrit 26.6 % (35-45); Hemoglobin 8.9 g/dL (11.5-14.3); Lymphocyte % 7.9 %; Mean Corpuscular Hemoglobin 31.7 pg (27-33); Mean Corpuscular Hgb Conc 33.5 g/dL (31-36); Mean Corpuscular Volume 94.8 fL (80-97); Mean Platelet Volume 8.5 fL (7.5-11.2); Platelet Count 167 10^3/uL (150-450); Red Blood Count 2.81 10^6/uL (3.63-4.92); White Blood Count 4.5 10^3/uL (3.8-11.8)
[2023-05-17] MEDS: NS 0.9% 1000 ml BAG 1,000 ML IV SCH (16:13)
[2023-05-17] MEDS: Amoxicillin/Clavul 500/125 TAB (Augmentin 500 mg tab) PO SCH (20:25)
[2023-05-18 07:28] LABS: ABS Eosinophils 0.1 10^3/uL (0.0-0.5); ABS Lymphocytes 0.3 10^3/uL (1.0-4.8); ABS Monocytes 0.3 10^3/uL (0.0-0.9); ABS Neutrophils 5.3 10^3/uL (1.5-7.6); Eosinophil % 1.2 %; Hematocrit 26.5 % (35-45); Hemoglobin 9.1 g/dL (11.5-14.3); Lymphocyte % 5.5 %; Mean Corpuscular Hemoglobin 32.5 pg (27-33); Mean Corpuscular Hgb Conc 34.2 g/dL (31-36); Mean Corpuscular Volume 95.1 fL (80-97); Mean Platelet Volume 8.8 fL (7.5-11.2); Platelet Count 177 10^3/uL (150-450); Red Blood Count 2.78 10^6/uL (3.63-4.92); Red Cell Distribution Width 17.1 % (12-17)
[2023-05-18 07:43] LABS: Calcium 8.1 mg/dL (8.6-10.3); Creatinine, Serum 1.54 mg/dL (0.51-0.95); eGFR CKD-EPI 32.1 (>60)
[2023-05-18] MEDS: Aspirin EC 81 mg TAB.EC (enteric coated) PO SCH (07:57)
[2023-05-18] MEDS: Amoxicillin/Clavul 500/125 TAB (Augmentin 500 mg tab) PO SCH ×2 (07:57→21:17)
[2023-05-19 06:34] LABS: ABS Eosinophils 0.1 10^3/uL (0.0-0.5); ABS Lymphocytes 0.3 10^3/uL (1.0-4.8); ABS Monocytes 0.4 10^3/uL (0.0-0.9); ABS Neutrophils 5.8 10^3/uL (1.5-7.6); Eosinophil % 1.4 %; Hematocrit 24.9 % (35-45); Hemoglobin 8.4 g/dL (11.5-14.3); Lymphocyte % 4.8 %; Mean Corpuscular Hemoglobin 32.7 pg (27-33); Mean Corpuscular Hgb Conc 33.9 g/dL (31-36); Mean Corpuscular Volume 96.4 fL (80-97); Mean Platelet Volume 8.8 fL (7.5-11.2); Platelet Count 172 10^3/uL (150-450); Red Blood Count 2.58 10^6/uL (3.63-4.92); Red Cell Distribution Width 16.6 % (12-17); White Blood Count 6.6 10^3/uL (3.8-11.8)
[2023-05-19 06:49] LABS: C Reactive Protein 22.28 mg/L (<8.01); Calcium 8.2 mg/dL (8.6-10.3); Creatinine, Serum 1.53 mg/dL (0.51-0.95); Potassium 4.3 mmol/L (3.5-5.0); eGFR CKD-EPI 32.3 (>60)
[2023-05-19] MEDS: Amoxicillin/Clavul 500/125 TAB (Augmentin 500 mg tab) PO SCH ×2 (08:25→20:37)
[2023-05-19] MEDS: Aspirin EC 81 mg TAB.EC (enteric coated) PO SCH (08:25)
[2023-05-19] MEDS ORDERED: Furosemide 40 mg/4 ml IV VIAL IV ONE (12:07)
[2023-05-20] MEDS: NS 0.9% 1000 ml BAG 1,000 ML IV SCH (06:47)
[2023-05-20 06:48] LABS: ABS Eosinophils 0.1 10^3/uL (0.0-0.5); ABS Lymphocytes 0.3 10^3/uL (1.0-4.8); ABS Monocytes 0.4 10^3/uL (0.0-0.9); ABS Neutrophils 5.4 10^3/uL (1.5-7.6); ABS Nucleated RBC 0.01 10^3/ul; Hematocrit 24.4 % (35-45); Hemoglobin 8.4 g/dL (11.5-14.3); Lymphocyte % 5.3 %; Mean Corpuscular Hemoglobin 32.9 pg (27-33); Mean Corpuscular Hgb Conc 34.3 g/dL (31-36); Mean Corpuscular Volume 95.8 fL (80-97); Mean Platelet Volume 8.6 fL (7.5-11.2); Nucleated Red Blood Cells % 0.2 /100 WBC (0.0-0.4); Platelet Count 151 10^3/uL (150-450); Red Blood Count 2.55 10^6/uL (3.63-4.92); Red Cell Distribution Width 17.1 % (12-17); White Blood Count 6.2 10^3/uL (3.8-11.8)
[2023-05-20 07:00] LABS: Calcium 8.4 mg/dL (8.6-10.3); Creatinine, Serum 1.5 mg/dL (0.51-0.95); Magnesium 1.8 mg/dL (1.9-2.7); Potassium 4.5 mmol/L (3.5-5.0); eGFR CKD-EPI 33.1 (>60)
[2023-05-20] MEDS: Amoxicillin/Clavul 500/125 TAB (Augmentin 500 mg tab) PO SCH ×2 (09:38→21:16)
[2023-05-20] MEDS: Aspirin EC 81 mg TAB.EC (enteric coated) PO SCH (09:38)
[2023-05-20] MEDS ORDERED: Furosemide 40 mg/4 ml IV VIAL IV ONE (09:48)
[2023-05-21 06:46] LABS: ABS Eosinophils 0.1 10^3/uL (0.0-0.5); ABS Lymphocytes 0.4 10^3/uL (1.0-4.8); ABS Monocytes 0.5 10^3/uL (0.0-0.9); Hemoglobin 8.2 g/dL (11.5-14.3); Lymphocyte % 7.9 %; Mean Corpuscular Hemoglobin 32.8 pg (27-33); Mean Corpuscular Hgb Conc 34.2 g/dL (31-36); Mean Corpuscular Volume 95.7 fL (80-97); Mean Platelet Volume 8.8 fL (7.5-11.2); Nucleated Red Blood Cells % 0.1 /100 WBC (0.0-0.4); Platelet Count 136 10^3/uL (150-450); Red Blood Count 2.51 10^6/uL (3.63-4.92); Red Cell Distribution Width 16.6 % (12-17)
[2023-05-21 06:56] LABS: Calcium 8.6 mg/dL (8.6-10.3); Creatinine, Serum 1.44 mg/dL (0.51-0.95); Magnesium 1.7 mg/dL (1.9-2.7); Potassium 4.4 mmol/L (3.5-5.0); eGFR CKD-EPI 34.8 (>60)
[2023-05-21] MEDS ORDERED: Magnesium Sulfate 2 gm BAG 2 GM/50 ML BAG IVPB ONE (08:30)
[2023-05-21] MEDS: Aspirin EC 81 mg TAB.EC (enteric coated) PO SCH (08:35)
[2023-05-21] MEDS: Amoxicillin/Clavul 500/125 TAB (Augmentin 500 mg tab) PO SCH (08:35)
[2023-05-21] MEDS ORDERED: Furosemide 40 mg/4 ml IV VIAL IV ONE (09:24)
[2023-05-22 06:59] LABS: Calcium 8.6 mg/dL (8.6-10.3); Creatinine, Serum 1.38 mg/dL (0.51-0.95); Potassium 4.5 mmol/L (3.5-5.0); eGFR CKD-EPI 36.6 (>60)
[2023-05-22] MEDS: Aspirin EC 81 mg TAB.EC (enteric coated) PO SCH (08:57)
[2023-05-22 10:44] VITALS: BP 119/58
== END 2023-05-22 14:18 | disposition home or self-care (01) | DRG 70 ==
LOC: ED 18:08 → EDHOLD 18:08 → SUATTDRO 05-15 03:55 → MED 05-15 06:08 → SUATTDRO 05-17 17:14
PROVIDERS: ADMIT Internal Medicine; ATTEND Internal Medicine

== ENCOUNTER 2023-05-27 13:18 | Observation (INO) ==
[2023-05-27] MEDS ORDERED: Atropine 1% (ORAL/SL) 15 ML BTL SL PRN (17:48)
[2023-05-27] MEDS ORDERED: Morphine 2 MG/ML SYRINGE IV PRN (17:48)
[2023-05-28] MEDS: Morphine ORAL CONCENTRATE 5 MG/0.25 ML ORAL.SYRIN PO PRN ×4 (01:33→15:23)
[2023-05-28 06:33] VITALS: BP 85/57
== END 2023-05-28 16:28 ==
LOC: EDHOLD 13:18 → ED 13:18 → MED 05-28 03:08
PROVIDERS: ADMIT Internal Medicine; ATTEND Internal Medicine